=== PATIENT | female | born 1980 | race Caucasian/White ===

== ENCOUNTER 2021-09-06 12:59 | Emergency (ER) | payer OTHER, SELFPAY ==
[2021-09-06 13:12] VITALS: BP 117/69; PULSE 66; RESP 16; TEMP 36.5; O2SAT 100
--- NOTE | 2021-09-06 13:32 | ED.URI ---
HPI - URI/Sore Throat General Chief Complaint: Upper Respiratory Infection Stated Complaint: Runny Nose,Sore Throat Time Seen by Provider: 09/06/21 13:32 Source: patient, RN notes reviewed and old records reviewed Mode of arrival: ambulatory Limitations: no limitations History of Present Illness HPI Narrative: 41-year-old female who presents to [facility] with complaints of runny nose sore throat, headache and fatigue since yesterday with some body aches. Patient reports that daughter tested positive for COVID on Sunday. Patient reports that she has had COVID vaccinations but no Booster, no flu shot. Patient reports no shortness of breath or any wheezing noted, states some dry cough, did feel feverish last night. MD elicited complaint: cough, sore throat, rhinorrhea and other (body aches and fatigue.) Onset (ago): day(s) (1) Related Data Home Medications Medication Instructions Recorded Confirmed No Home Medications 09/06/21 09/06/21 Allergies Allergy/AdvReac Type Severity Reaction Status Date / Time No Known Allergies Allergy Verified 09/06/21 14:10 Review of Systems Review of Systems: CONSTITUTIONAL: Denies known fever, chills, or sweats. EYES: Denies visual changes, redness, or discharge. ENT: Positive for rhinorrhea, congestion, sore throat, no otalgia. CARDIOVASCULAR: Denies chest pain, palpitations, or edema. RESPIRATORY: dry cough no dyspnea. GASTROINTESTINAL: Denies abdominal pain, nausea, vomiting, or diarrhea. GENITOURINARY: Denies dysuria or hematuria. SKIN: Denies rash or itching. MUSCULOSKELETAL: Denies back pain, joint pain, body aches stated NEUROLOGIC: Denies headache, numbness, or weakness. PSYCHIATRIC: Denies anxiety or depression. All systems reviewed & are unremarkable except as noted in HPI and below PMFSH Past Medical History Medical History (Updated 09/07/21 @ 00:43 by Moni Zuleta NP) Gall bladder disease Hypothyroid Surgical History Surgical History (Updated 09/07/21 @ 00:44 by Moni Zuleta NP) History of removal of ovarian cyst History of tonsillectomy Social History Social History (Updated 09/07/21 @ 00:45 by Moni Zuleta NP) Smoking status: Never smoker Alcohol intake: current Alcohol use details: social rare Substance use type: does not use Living arrangements: with family Gender identity (if verbalized by the patient): Female Comments At time of signature, agree with nursing past medical, surgical, social and family history. There is no relevant family history pertinent to the presenting complaint Exam Narrative: GENERAL: Well-appearing, well-nourished, and in no acute distress. HEAD: Normocephalic, atraumatic. EYES: PERRLA and EOMI. ENT: Nares clear, no rhinorrhea or epistaxis. Mucous membranes moist.TM's normal with good light reflex, throat pink with no lesion or exudates, tonsils absent. NECK: Supple with no lymphadenopathy CHEST: Clear to auscultation. No respiratory distress.dry cough, denies any dyspnea no tachypnea, SAO2 100% on room air HEART: Regular rate and rhythm. No murmur heard. Normal peripheral pulses. ABDOMEN: Soft, nontender, nondistended, normal active bowel sounds. EXTREMITIES: Normal range of motion. No edema. SKIN: Warm, dry, no rash. NEURO: No focal deficits. Alert and oriented x3. Course Course Level of Care: Express Care Visit Vital Signs Vital signs: Vital Signs Temperature 36.5 C 09/06/21 13:12 Pulse Rate 66 09/06/21 13:12 Respiratory Rate 16 09/06/21 13:12 Blood Pressure 117/69 09/06/21 13:12 Pulse Oximetry 100 09/06/21 13:12 Oxygen Delivery Room Air 09/06/21 13:12 Temperature 36.5 C 09/06/21 13:12 Pulse Rate 66 09/06/21 13:12 Respiratory Rate 16 09/06/21 13:12 Blood Pressure 117/69 09/06/21 13:12 Pulse Oximetry 100 09/06/21 13:12 Oxygen Delivery Room Air 09/06/21 13:12 MDM - URI/Sore Throat Differential Diagnosis Differential diagnosis: Likely up
[2021-09-06 20:48] LABS: SARS-CoV-2 RNA PCR Negative
== END 2021-09-06 14:00 | disposition home or self-care (01) ==
PROVIDERS: Emergency Provider Registered Nurse
DX: J06.9 Acute upper respiratory infection, unspecified (principal); Z20.822 Contact with and (suspected) exposure to COVID-19; E03.9 Hypothyroidism, unspecified
CPT/HCPCS: 87081; 87426; 87880; 99203; C9803; G0463; U0003; U0005

== ENCOUNTER 2021-10-08 12:41 | Emergency (ER) | payer OTHER, SELFPAY ==
[2021-10-08 12:54] VITALS: BP 131/91; PULSE 72; RESP 16; TEMP 36.9; O2SAT 100
[2021-10-08 13:01] VITALS: BP 131/91; PULSE 72; RESP 16; TEMP 36.9; O2SAT 100
--- NOTE | 2021-10-08 13:30 | ED.URI ---
HPI - URI/Sore Throat General Chief Complaint: Upper Respiratory Infection Stated Complaint: Sinus,Fever,Sore Throat,SOB Time Seen by Provider: 10/08/21 13:30 History of Present Illness HPI Narrative: Tami Hernandez is a 41-year-old female with hypothyroid who comes to express care stating that she feels really sick and is been fatigued, laying in bed, has a fever, can taste or smell, aches all over x2 days and is gradually gotten worse Related Data Home Medications Medication Instructions Recorded Confirmed levothyroxine 125 mcg tablet 125 mcg PO DAILY 10/08/21 10/08/21 sertraline 50 mg tablet 50 mg PO DAILY 10/08/21 10/08/21 valacyclovir 500 mg tablet 500 mg PO DIRECTED 10/08/21 10/08/21 Allergies Allergy/AdvReac Type Severity Reaction Status Date / Time No Known Allergies Allergy Verified 10/08/21 12:53 Review of Systems Review of Systems: CONSTITUTIONAL: Has s fever, chills, sweats. Muscle pain EYES: Denies visual changes, redness, discharge. ENT: Denies rhinorrhea, congestion, has sore throat, has otalgia. CARDIOVASCULAR: Denies chest pain, palpitations, edema. RESPIRATORY: Denies dyspnea, wheezing, dry cough GASTROINTESTINAL: Denies abdominal pain, nausea, vomiting, diarrhea. GENITOURINARY: Denies dysuria, hematuria, abnormal discharge SKIN: Denies rash or itching. NEUROLOGIC: Denies numbness, or focal weakness. PSYCHIATRIC: Denies anxiety or depression. PMFSH Past Medical History Medical History Gall bladder disease Hypothyroid Surgical History Surgical History History of removal of ovarian cyst History of tonsillectomy Social History Social History Smoking status: Never smoker Alcohol intake: current Alcohol use details: social rare Substance use type: does not use Gender identity (if verbalized by the patient): Female Comments At time of signature, I agree with nursing past medical, surgical, social and family history. There is no relevant family history pertinent to the presenting complaint. Exam Narrative: GENERAL: This is a well-nourished, well-developed patient, in moderate distress. Tearful HEAD: normocephalic, atraumatic. EYES: . Sclera clear/white. Vision is grossly intact. EARS: External ears normal, auditory canals erythematous with edema and without drainage, . Hearing grossly intact. NOSE: External nose normal without nasal discharge, nares without redness, has rhinorrhea. States cannot smell or taste THROAT: Mucous membranes moist, posterior pharynx erythema NECK: Neck supple, non-tender CARDIOVASCULAR: Regular rate and rhythm without murmurs, gallops, or rubs. RESPIRATORY: Clear to auscultation. Breath sounds equal bilaterally. No wheezes, rales, or rhonchi. GASTROINTESTINAL: Abdomen soft, non-tender, SKIN: warm, intact with no suspicious lesions or rash, good texture and turgor. NEURO: awake, alert, and oriented to person, place and time. There were no obvious focal neurologic abnormalities. Steady gait EXTREMITIES: Normal range of motion. BACK: Nontender without deformity Course Course Emergency Course: Patient here with worsening symptoms since Sunday of cough fever general muscle pain inability to eat or smell, states generally feels lousy Flu done - positive for flu A COVID done negative strep done-negative started on steroids, tessalon, use Tylenol ibuprofen as needed Level of Care: Express Care Visit Vital Signs Vital signs: Vital Signs Temperature 98.5 F 10/08/21 12:54 Pulse Rate 72 10/08/21 12:54 Respiratory Rate 16 10/08/21 12:54 Blood Pressure 131/91 H 10/08/21 12:54 Pulse Oximetry 100 10/08/21 12:54 Oxygen Delivery Room Air 10/08/21 12:54 Temperature 98.5 F 10/08/21 13:01 Pulse Rate 72 10/08/21 13:01 Respiratory Rate 16 10/08/21 13:01 Bl
== END 2021-10-08 14:24 | disposition home or self-care (01) ==
PROVIDERS: Emergency Provider Nurse Practitioner
DX: J10.1 Influenza due to other identified influenza virus with other respiratory manifestations (principal); Z20.822 Contact with and (suspected) exposure to COVID-19; E03.9 Hypothyroidism, unspecified
CPT/HCPCS: 87081; 87426; 87804; 87880; 99213; C9803; G0463

== ENCOUNTER 2021-11-24 11:45 | Outpatient (CLI) | payer OTHER, SELFPAY ==
[2021-11-24 12:19] LABS: Alanine Aminotransferase 27 U/L (6-35); Albumin Level 4.5 g/dL (3.5-5.1); Alkaline Phosphatase 56 U/L (38-126); Anion Gap 11 mmol/L (8-16); Aspartate Amino Transferase 35 U/L (14-36); Basophils Absolute Auto 0.1 K/mm3 (0.0-0.1); Basophils Percent Auto 0.8 % (0.2-1.2); Bilirubin,Total 0.4 mg/dL (0.2-1.3); Blood Urea Nitrogen 15 mg/dL (7-17); Carbon Dioxide 25 mmol/L (22-30); Chloride 101 mmol/L (98-107); Cholesterol 151 mg/dL (0-200); Eosinophils Absolute Auto 0.4 K/mm3 (0-0.3); Eosinophils Percent Auto 3.6 % (0-4.4); Estimated Glomerular Filt Rate > 60; Glucose 96 mg/dL (65-110); HDL Direct 74 mg/dL; Hematocrit 39.3 % (37.0-47.0); Hemoglobin 13.2 g/dL (12.0-15.0); Immature Granulocyte Absolute 0.04 K/mm3 (0.00-0.031); Immature Granulocyte Percent A 0.3 % (0-0.5); Lymphocytes Absolute Auto 2.99 K/mm3 (0.9-3.2); Lymphocytes Percent Auto 25.5 % (18.3-44.2); Mean Corpuscular HGB Conc 33.6 g/dl (32-36); Mean Corpuscular Hemoglobin 31.7 pg (26-34); Mean Corpuscular Volume 94.5 fl (80-100); Mean Platelet Volume 9.5 fl (7.4-10.4); Monocytes Absolute Auto 0.7 K/mm3 (0.1-0.6); Monocytes Percent Auto 6.2 % (2.6-8.5); Neutrophils Absolute Auto 7.5 K/mm3 (1.3-6.7); Neutrophils Percent Auto 63.6 % (45.5-73.1); Platelet Count Result 363 k/mm3 (150-375); Red Blood Count 4.16 M/mm3 (4.2-5.4); Red Cell Distribution Width 14.8 % (11.5-14.5); Sodium 137 mmol/L (137-145); Triglycerides 49 mg/dL (<150); White Blood Count 11.7 K/mm3 (4.5-10.0)
[2021-11-24 12:30] LABS: LDL Cholesterol Direct 59 mg/dL
[2021-11-24 13:05] LABS: Thyroid Stimulating Hormone Reflex 0.981 uIU/mL (0.465-4.68)
[2021-11-24 13:40] LABS: Hemoglobin A1C 5.4 % (<5.7)
== END 2021-11-24 11:46 | disposition home or self-care (01) ==
PROVIDERS: Visit Provider Nurse Practitioner Obstetrics & Gynecology
DX: Z00.00 Encounter for general adult medical examination without abnormal findings (principal)
CPT/HCPCS: 36415; 80053; 80061; 82306; 83036; 84443; 85025

== ENCOUNTER 2021-12-21 13:21 | Outpatient (CLI) | payer OTHER, SELFPAY ==
--- NOTE | ~2021-12-21 | US_ITS ---
EXAMINATION: US thyroid DATE: 12/21/2021 13:50 INDICATION: Nontoxic goiter. TECHNIQUE: Multiple ultrasound images of the thyroid were obtained. COMPARISON: None. FINDINGS: The right thyroid lobe measures 3.3 x 1.0 x 1.2 cm. The left thyroid lobe measures 2.6 x 0.9 x 1.2 c m. The thyroid is diffusely heterogeneous and hypoechoic. No discrete nodule. Vascularity is increas ed. IMPRESSION: 1. Heterogeneous, hypervascular thyroid, consistent with chronic lymphocytic (Brittaney) thyroiditis. Reviewed, dictated and finalized at location A. ERY HOST IMPRESSION: 1. Heterogeneous, hypervascular thyroid, consistent with chronic lymphocytic (H ashimoto) thyroiditis.
== END 2021-12-21 13:22 | disposition home or self-care (01) ==
DX: E04.9 Nontoxic goiter, unspecified (principal)
CPT/HCPCS: 76536

== ENCOUNTER 2021-12-22 11:51 | Emergency (ER) | payer OTHER, SELFPAY ==
--- NOTE | 2021-12-22 12:14 | ED.URI ---
HPI - URI/Sore Throat General Chief Complaint: Upper Respiratory Infection Stated Complaint: Sore Throat, Running Nose, Weakness Time Seen by Provider: 12/22/21 12:15 Source: patient Mode of arrival: ambulatory Limitations: no limitations History of Present Illness HPI Narrative: Ms. Duval is a 41-year-old female patient presenting to clinic today with complaints of sore throat, runny nose, and feeling weak. She reports her symptoms started yesterday. States that her daughter tested positive for influenza on Sunday. MD elicited complaint: sore throat and nasal congestion Related Data Home Medications Medication Instructions Recorded Confirmed levothyroxine 125 mcg tablet 125 mcg PO DAILY 10/08/21 12/22/21 sertraline 50 mg tablet 50 mg PO DAILY 10/08/21 12/22/21 valacyclovir 500 mg tablet 500 mg PO DIRECTED 10/08/21 12/22/21 Allergies Allergy/AdvReac Type Severity Reaction Status Date / Time No Known Allergies Allergy Verified 12/22/21 11:57 Review of Systems Review of Systems: Pertinent positives per HPI. Patient denies any fever, chills, rash, headache, visual changes, dizziness, shortness of breath, chest pain, palpitations, nausea, vomiting, diarrhea, constipation, abdominal pain, or any urinary issues. [facility] Past Medical History Medical History Gall bladder disease Hypothyroid Surgical History Surgical History History of removal of ovarian cyst History of tonsillectomy Social History Social History Smoking status: Never smoker Alcohol intake: current Alcohol use details: social rare Substance use type: does not use Gender identity (if verbalized by the patient): Female Comments At the time of my signature, I reviewed and agree with the nursing past medical, surgical, social, and family history. There is no relevant family history pertinent to the patient complaint. Exam Narrative: General: Well-developed, well nourished, in no apparent distress Head: Normocephalic, atraumatic Eyes: Pupils equally round and reactive to light bilaterally, EOM intact, sclera and conjunctive clear, no discharge, lids normal Ears: TMs intact and clear, ear canals clear, no drainage, grossly hearing normal. Nose: Nares patent, clear nasal discharge, no inflammation, no sinus tenderness. Mouth: Oral pharynx without lesions or masses, good dentition, MMM. Oropharynx red, postnasal drip Neck: Supple, trachea midline, no enlargement of anterior or posterior cervical nodes, no thyroid masses or goiter palpable. Cardio: Regular rate and rhythm, s1 and s2 normal, no murmur appreciated. Resp: Clear to auscultation bilaterally, no rhonchi, rales, wheezing or rubs Course Course Emergency Course: Portions of this record may have been created with voice recognition software. Level of Care: Express Care Visit Vital Signs Vital signs: Vital Signs Temperature 36.3 C L 12/22/21 12:15 Pulse Rate 77 12/22/21 12:15 Respiratory Rate 20 12/22/21 12:15 Blood Pressure 124/72 12/22/21 12:15 Pulse Oximetry 100 12/22/21 12:15 Oxygen Delivery Room Air 12/22/21 12:15 Temperature 36.3 C L 12/22/21 12:15 Pulse Rate 77 12/22/21 12:15 Respiratory Rate 20 12/22/21 12:15 Blood Pressure 124/72 12/22/21 12:15 Pulse Oximetry 100 12/22/21 12:15 Oxygen Delivery Room Air 12/22/21 12:15 Vital signs reviewed MDM - URI/Sore Throat MDM Narrative Medical decision making narrative: At the time of visit patient is resting comfortably on the exam table. I will treat her for influenza exposure with viral syndrome as she has had direct exposure from her daughter. Measures were discussed with the patient she voiced understanding of discharge instructions. Tamiflu prescription was sent to the pharmacy
[2021-12-22 12:15] VITALS: BP 124/72; PULSE 77; RESP 20; TEMP 36.3; O2SAT 100
== END 2021-12-22 17:22 | disposition home or self-care (01) ==
PROVIDERS: Emergency Provider Nurse Practitioner Family
DX: B34.9 Viral infection, unspecified (principal); Z20.828 Contact with and (suspected) exposure to other viral communicable diseases; E03.9 Hypothyroidism, unspecified
CPT/HCPCS: 99213; G0463

== ENCOUNTER 2021-12-31 11:29 | Outpatient (CLI) | payer OTHER, SELFPAY ==
--- NOTE | ~2021-12-31 | MM_ITS ---
EXAMINATION: MM screening megan BI w kusum HISTORY: Screening mammogram TECHNIQUE: Craniocaudal and mediolateral oblique 3-D tomosynthesis images were obtained and synthetic 2-D images were generated. CAD analysis was submitted and interpreted. COMPARISON: No prior mammogram is available for comparison at this institution. BREAST PARENCHYMAL COMPOSITION: The breasts are heterogeneously dense, which may obscure small masses . FINDINGS: RIGHT BREAST: No suspicious mass, calcification, or architectural distortion are identified to sugges t malignancy. LEFT BREAST: There is asymmetry in the posterior third of the slightly inner breast on the craniocaud al view. IMPRESSION: 1. Left breast asymmetry which may represent the patient's baseline however no comparison is currentl y available. 2. Comparison with prior mammograms is necessary. BI-RADS Category 0: Incomplete: Needs comparison with prior mammograms. Reviewed, dictated and finalized at location A. CLERK IMPRESSION: 1. Left breast asymmetry which may represent the patient's baseline however no comparison is currently available. 2. Comparison with prior mammograms is necessary. BI-RADS Category 0: Incomplete: Needs comparison with prior mammograms.
== END 2021-12-31 11:30 | disposition home or self-care (01) ==
PROVIDERS: Visit Provider Nurse Practitioner Obstetrics & Gynecology
DX: Z12.31 Encounter for screening mammogram for malignant neoplasm of breast (principal); R92.8 Other abnormal and inconclusive findings on diagnostic imaging of breast
CPT/HCPCS: 77063; 77067

== ENCOUNTER 2022-01-27 10:57 | Outpatient (CLI) | payer OTHER, SELFPAY ==
--- NOTE | ~2022-01-27 | MMUS_ITS ---
EXAMINATION: MM diagnostic megan LT w kusum, US breast LT complete HISTORY: Follow-up left breast asymmetry TECHNIQUE: Additional 3-D tomosynthesis images of the left breast were performed and synthetic 2-D im ages were generated. CAD analysis was submitted and interpreted. High resolution complete left breast ultrasound was performed. COMPARISON: Comparison to multiple prior studies sequentially, with oldest reviewed study dated 03/25. BREAST PARENCHYMAL COMPOSITION: The breasts are heterogeneously dense, which may obscure small masses FINDINGS: MAMMOGRAPHIC FINDINGS: There are no suspicious masses, calcifications or architectural distortion in the left breast. Left b reast asymmetry is less dense with spot compression views, compatible with superimposed fibroglandula r tissue. ULTRASOUND: Complete left breast ultrasound including all 4 quadrants in the subareolar location: Normal heteroge neous echotexture without focal solid or cystic mass. Normal-appearing left axillary lymph nodes. IMPRESSION: 1. No evidence for malignancy in the left breast. 2. Routine yearly screening mammogram and regular clinical breast examination are recommended. BI-RADS Category 2: Benign finding(s). Reviewed, dictated and finalized at location A. HAUL TRUCK DRIVER IMPRESSION: 1. No evidence for malignancy in the left breast. 2. Routine yearly screening mammogram and regular clinical breast examination a re recommended. BI-RADS Category 2: Benign finding(s).
== END 2022-01-27 10:58 | disposition home or self-care (01) ==
PROVIDERS: Visit Provider Nurse Practitioner Obstetrics & Gynecology
DX: R92.8 Other abnormal and inconclusive findings on diagnostic imaging of breast (principal)
CPT/HCPCS: 76641; 77061; 77065; G0279

== ENCOUNTER 2022-01-30 16:48 | Emergency (ER) | payer OTHER, SELFPAY ==
[2022-01-30 17:43] VITALS: BP 118/82; PULSE 87; RESP 18; TEMP 38.8; O2SAT 100
--- NOTE | 2022-01-30 18:15 | ED.URI ---
HPI - URI/Sore Throat General Chief Complaint: Upper Respiratory Infection Stated Complaint: Fever/Bodyaches Time Seen by Provider: 01/30/22 18:15 Source: patient, RN notes reviewed and old records reviewed Mode of arrival: ambulatory Limitations: no limitations History of Present Illness HPI Narrative: 41-year-old female presents to the [facility] with complaints of fever, body aches. patient looks acutely ill. febrile has taken Tylenol Related Data Home Medications Medication Instructions Recorded Confirmed levothyroxine 125 mcg tablet 125 mcg PO DAILY 10/08/21 12/22/21 sertraline 50 mg tablet 50 mg PO DAILY 10/08/21 12/22/21 valacyclovir 500 mg tablet 500 mg PO DIRECTED 10/08/21 12/22/21 omeprazole 20 mg capsule,delayed mg 01/30/22 release Allergies Allergy/AdvReac Type Severity Reaction Status Date / Time No Known Allergies Allergy Verified 01/30/22 18:14 Review of Systems Review of Systems: All systems reviewed & are unremarkable except as noted in HPI and below Constitutional: Constitutional: Reports as per HPI, Reports fatigue and Reports fever(s) Eyes: Eyes: Reports no additional eye complaints ENT: Reports system reviewed and no additional complaints, except as documented Cardiovascular: Cardiovascular: Reports no additional cardiovascular complaints, Denies chest pain and Denies dyspnea Respiratory: Respiratory: Reports no additional respiratory complaints, Denies chest congestion, Denies cough and Denies dyspnea Gastrointestinal: Gastrointestinal: Reports no additional gastrointestinal complaints, Denies abdominal pain, Denies nausea and Denies vomiting Musculoskeletal: Musculoskeletal: Reports no additional musculoskeletal complaints Integumentary/Breasts: Skin/Breast: Reports system reviewed and no additional complaints, except as docu Neurologic: Reports system reviewed and no additional complaints, except as documented Psychiatric: Psychiatric: Reports no additional psychiatric complaints Allergic/Immunologic: Allergic/Immunologic: Reports no additional allergic/immunologic complaints PMFSH Past Medical History Medical History Gall bladder disease Hypothyroid Surgical History Surgical History History of removal of ovarian cyst History of tonsillectomy Social History Social History Smoking status: Never smoker Alcohol intake: current Alcohol use details: social rare Substance use type: does not use Gender identity (if verbalized by the patient): Female Comments At the time of my signature, I reviewed and agree with the nursing past medical, surgical, social, and family history. There is no relevant family history pertinent to the patient complaint. Exam Const: General: cooperative, no acute distress, well developed, alert, ill appearing acutely (mild), uncomfortable and well nourished Nutritional Appearance: well nourished Orientation/consciousness: patient oriented x3 Limitations: no limitations HENMT: Head: normal to inspection Ears: hearing grossly normal bilaterally and external ears normal Face/Nose/Sinus: Normal external nose present, Normal nares present, Normal nasal mucous membranes and turbinates present and normal facial exam Face and sinus: normal facial exam Mouth: Yes Normal oral and palatal mucosa present, Yes lip normal and Yes moist mucous membranes Throat: posterior oropharynx normal and uvula midline Eyes: General: appearance normal, both eyes and all related structures Alignment and Position: alignment normal Periorbital: periorbital findings normal Conjunctivae: conjunctivae normal Pupils: Equal, round and reactive pupils present EOM: EOMs intact bilaterally Neck: Neck: normal visual inspection, full ROM, no lymphadenopathy and no meningeal signs Chest: Chest palp
== END 2022-01-30 18:36 | disposition home or self-care (01) ==
PROVIDERS: Emergency Provider Nurse Practitioner
DX: U07.1 COVID-19 (principal); E03.9 Hypothyroidism, unspecified
CPT/HCPCS: 87426; 87804; 99213; C9803; G0463

== ENCOUNTER 2022-02-09 09:33 | Outpatient (CLI) | payer OTHER, SELFPAY ==
[2022-02-09 10:48] LABS: Thyroid Stimulating Hormone 0.822 uIU/mL (0.465-4.680)
== END 2022-02-09 09:34 | disposition home or self-care (01) ==
DX: E03.9 Hypothyroidism, unspecified (principal)
CPT/HCPCS: 36415; 84443

== ENCOUNTER 2022-02-20 12:04 | Observation (INO) | payer OTHER, SELFPAY ==
[2022-02-20] VITALS (32 sets, daily range): BP systolic 105–135; BP diastolic 54–87; PULSE 55–78; RESP 9–21; TEMP 36.4; O2SAT 98–100; BMI 28.5
--- NOTE | ~2022-02-20 | CT_ITS ---
EXAMINATION: CTA brain carotid DATE: 02/20/2022 18:10 INDICATION: dizziness TECHNIQUE: Computed tomographic angiography (CTA) of the head and neck was performed with 100 mL Omni paque-350 intravenous contrast. Automated exposure control and iterative reconstruction technique wer e employed. The dose-length product was 1006.93 mGy-cm. Maximum intensity projection and volume rende red 3D-reconstructions were created by the technologist on a separate workstation. COMPARISON: CT brain, same date. FINDINGS: CT BRAIN: No acute large vessel infarct, intracranial hemorrhage, mass, or hydrocephalus. CTA HEAD: No large vessel occlusion, aneurysm, high flow vascular malformation, nidus or extravasation. CTA NECK: Aortic arch and proximal great vessels: Normal anatomy. No significant calcification. Right common carotid, carotid bifurcation, and internal carotid artery: No significant atherosclerosi s.There is 0% stenosis of the proximal right internal carotid artery relative to normal distal artery lumen diameter (NASCET criteria). Left common carotid, carotid bifurcation, and internal carotid artery: No significant atherosclerosis .There is 0% stenosis of the proximal left internal carotid artery relative to normal distal artery l umen diameter (NASCET criteria). Vertebral arteries: No significant plaque or stenosis. Left vertebral artery is dominant. Other findings: None. IMPRESSION: No large vessel occlusion or significant carotid/vertebral stenosis. Reviewed, dictated and finalized at location K. UE CARVER
--- NOTE | ~2022-02-20 | MR_ITS ---
MRI of the brain Clinical History: Vertigo Technique: Axial and sagittal T1-weighted images were acquired. These were followed by axial T2-weigh jordan, diffusion weighted, gradient, and FLAIR images. Findings: No abnormal signal seen in the brain parenchyma. No acute infarct, intracranial hemorrhage, or mass lesion. Ventricles and subarachnoid spaces are unremarkable. Orbits are unremarkable. Paranasal sinuses and m astoid air cells are clear. Major intracranial flow voids are intact. Sagittal midline structures are intact. IMPRESSION: Unremarkable exam. Reviewed, dictated and finalized at location M. RNAL AUDITOR IMPRESSION: Unremarkable exam.
--- NOTE | ~2022-02-20 | CT_ITS ---
EXAMINATION: CT brain wo con DATE: 02/20/2022 15:08 INDICATION: dizziness . TECHNIQUE: Computed tomography (CT) of the head was performed about intravenous contrast. The mA was adjusted according to patient size. Iterative reconstruction technique was employed. The dose-length product was 605.33 mGy-cm. COMPARISON: None. FINDINGS: No acute intracranial hemorrhage or extra-axial fluid collection. No hydrocephalus, mass, or herniation. No acute ischemic infarct. Unremarkable dural venous sinus attenuation. No acute osseous abnormality. The aerated spaces are clear. IMPRESSION: No acute intracranial process. Reviewed, dictated and finalized at location K. CART PEDDLER
--- NOTE | 2022-02-20 12:23 | ECG_ITS ---
Measurements Intervals [place] Rate: 61 P: 24 [place]: 114 QRS: 56 QRSD: 69 T: 35 QT: 401 QTc: 405 Interpretive Statements SINUS RHYTHM WITH SHORT [place] INTERVAL LOW VOLTAGE- PRECORDIAL LEADS BORDERLINE T WAVE ABNORMALITY- ANTERIOR LEADS BASELINE ARTIFACT- I, II, III, AVR, AVL BORDERLINE ECG NO PREVIOUS ECG AVAILABLE FOR COMPARISON Electronically Signed On 02-20-2022 12:47:15 ANTIQUE REFINISHER by Juan Parish D.O.
[2022-02-20 12:47] LABS: Basophils Absolute Auto 0.1 K/mm3 (0.0-0.1); Basophils Percent Auto 0.7 % (0.2-1.2); Eosinophils Absolute Auto 0.4 K/mm3 (0-0.3); Eosinophils Percent Auto 4.4 % (0-4.4); Hemoglobin 12.9 g/dL (12.0-15.0); Immature Granulocyte Absolute 0.02 K/mm3 (0.00-0.031); Immature Granulocyte Percent A 0.2 % (0-0.5); Lymphocytes Absolute Auto 2.58 K/mm3 (0.9-3.2); Lymphocytes Percent Auto 29.1 % (18.3-44.2); Mean Corpuscular HGB Conc 33.1 g/dl (32-36); Mean Corpuscular Hemoglobin 31.4 pg (26-34); Mean Corpuscular Volume 94.9 fl (80-100); Mean Platelet Volume 9.7 fl (7.4-10.4); Monocytes Absolute Auto 0.7 K/mm3 (0.1-0.6); Monocytes Percent Auto 7.4 % (2.6-8.5); Neutrophils Absolute Auto 5.2 K/mm3 (1.3-6.7); Neutrophils Percent Auto 58.2 % (45.5-73.1); Platelet Count Result 358 k/mm3 (150-375); Red Blood Count 4.11 M/mm3 (4.2-5.4); Red Cell Distribution Width 15.3 % (11.5-14.5); White Blood Count 8.9 K/mm3 (4.5-10.0)
[2022-02-20 12:56] LABS: Alanine Aminotransferase 17 U/L (6-35); Albumin Level 4.3 g/dL (3.5-5.1); Alkaline Phosphatase 45 U/L (38-126); Anion Gap 6 mmol/L (8-16); Aspartate Amino Transferase 24 U/L (14-36); Bilirubin,Total 0.4 mg/dL (0.2-1.3); Blood Urea Nitrogen 10 mg/dL (7-17); Calcium 8.5 mg/dL (8.4-10.2); Carbon Dioxide 26 mmol/L (22-30); Chloride 104 mmol/L (98-107); Estimated CRCL calculation 80 ml/min; Estimated Glomerular Filt Rate > 60; Glucose 106 mg/dL (65-110); Potassium 3.8 mmol/L (3.4-5.0); Sodium 136 mmol/L (137-145)
--- NOTE | 2022-02-20 14:59 | ED.DIZZY ---
HPI - Dizziness General Chief Complaint: Dizziness Stated Complaint: dizziness x 2 days Time Seen by Provider: 02/20/22 14:46 History of Present Illness HPI Narrative: Pt presents with dizziness and nausea with movement of head. Pt says symptoms not there if her head is still. Pt has mild frontal MELENDEZ. Pt denies slurred speech or one sided weakness. Pt has no history of similar episodes. Pt denies hearing loss or changes. Related Data Home Medications Medication Instructions Recorded Confirmed levothyroxine 125 mcg tablet 125 mcg PO DAILY 10/08/21 12/22/21 sertraline 50 mg tablet 50 mg PO DAILY 10/08/21 12/22/21 valacyclovir 500 mg tablet 500 mg PO DIRECTED 10/08/21 12/22/21 omeprazole 20 mg capsule,delayed mg 01/30/22 release Allergies Allergy/AdvReac Type Severity Reaction Status Date / Time No Known Allergies Allergy Verified 02/20/22 12:05 Review of Systems Review of Systems: All systems reviewed & are unremarkable except as noted in HPI and below PMFSH Past Medical History Medical History Gall bladder disease Hypothyroid Surgical History Surgical History History of removal of ovarian cyst History of tonsillectomy Social History Social History Smoking status: Never smoker Alcohol intake: current Alcohol use details: social rare Substance use type: does not use Gender identity (if verbalized by the patient): Female Exam Const: General: healthy appearing and no acute distress Nutritional Appearance: well nourished Orientation/consciousness: patient oriented x3 Limitations: no limitations HENMT: Head: normal to inspection Ears: TM's normal bilaterally Mouth: Yes Normal oral and palatal mucosa present Eyes: Conjunctivae: conjunctivae normal Pupils: Equal, round and reactive pupils present EOM: EOMs intact bilaterally Resp: Effort & Inspection: normal respiratory effort Auscultation: clear to auscultation bilaterally Cardio: Rate: regular rate Rhythm: regular rhythm GI: Auscultation: normal bowel sounds Skin: General skin exam: normal color Wounds: no wounds Neuro: General: patient oriented x3, moves all extremities, no meningeal signs, no focal motor deficits and CN's II-XI intact bilaterally Speech: normal speech Extrem: General: normal to inspection and no clubbing, cyanosis or edema Psych: Mental Status: mental status grossly normal Affect: normal affect Attitude: cooperative Course Course Emergency Course: Epply maneuver attmpted. Symptoms did not improve. Tried to sit patient up to walk and she became even more dizzy not able to stand. can't really discharge patient in this condition. discussed with matthew godoy agrees to admit for obs. Will get CTA head and neck to be safe and rule out posterior circulation cva or dissection Vital Signs Vital signs: Vital Signs Temperature 97.6 F 02/20/22 12:06 Pulse Rate 70 02/20/22 12:06 Respiratory Rate 14 02/20/22 12:06 Blood Pressure 116/59 L 02/20/22 12:06 Pulse Oximetry 100 02/20/22 12:06 Oxygen Delivery Room Air 02/20/22 12:06 Temperature 97.6 F 02/20/22 12:06 Pulse Rate 67 02/20/22 17:47 Respiratory Rate 15 02/20/22 17:31 Blood Pressure 111/87 02/20/22 17:47 Pulse Oximetry 100 02/20/22 17:01 Oxygen Delivery Room Air 02/20/22 12:06 MDM - Dizziness MDM Narrative Medical decision making narrative: seems like positional vertigo, less likely posterior circulation cva. will CT brain non contrast and treat with meclizine first and then attempt epply maneuver to see if we can improve. Performed Epply maneuver without much relief, antivert and zofran minimally effective. Pt not able to sit up or ambulate withour becoming extrmely dizzy. discussed with Matthew horn to admit for obs, will get CTA had
[2022-02-20] MEDS: ONDANSETRON HCL ODT 4 MG TABLET PO (15:22)
[2022-02-20] MEDS: MECLIZINE HCL 25 MG TABLET 50 MG PO (15:25)
[2022-02-20] MEDS: fentaNYL CITRATE INJ (*CRX) 100 MCG/2 ML VIAL 25 MCG IM (15:26)
[2022-02-20 19:06] LABS: Influenza A QL RT-PCR Negative (Negative); Influenza B QL RT-PCR Negative (Negative); SARS-CoV-2 RNA PCR Negative
[2022-02-20] MEDS: diazePAM INJ (*CRX) 10 MG/2 ML SYRINGE 5 MG IV PUSH (19:09)
--- NOTE | 2022-02-20 20:00 | PM.IMHP ---
H&P: HPI History of Present Illness Date/Time: 02/20/22 20:00 Chief Complaint: Dizziness. Narrative: This is a very pleasant 41-year-old female with recent diagnosis of Brittaney's, depression, and anxiety who presented to the emergency department from home for evaluation of dizziness. She has had a a frontal headache and mild sinus congestion for the last several days. 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 The dizziness seemed to be a bit more frequent yesterday with mild right-sided tinnitus. Upon waking this morning she reports severe dizziness which sounds to be vertiginous in nature associated with nausea. It is worse with minimal movement and perhaps a bit better when lying still. She has never had similar symptoms. She denies fever, chills, sweats, otalgia, odynophagia, and vomiting. She also denies acute visual changes, facial droop, dysarthria, dysphagia, focal weakness, and paresthesias. Vital signs were stable on arrival to the ED. CT of the brain and CTA of the brain and carotid were unremarkable. She was given ondansetron and meclizine in the ED without a whole lot of benefit. Deanne maneuver exacerbated her symptoms. She is being admitted in this setting for further treatment and evaluation. Review of Systems Review of Systems: Twelve systems were reviewed and are negative except for as per HPI. [facility] Past Medical History Medical History (Updated 02/20/22 @ 23:17 by Navya Jay PA-C) Depression with anxiety Gastroesophageal reflux disease Brittaney's disease Hypothyroidism Surgical History Surgical History (Updated 02/20/22 @ 23:13 by Navya Jay PA-C) History of benign breast biopsy History of cholecystectomy History of colonoscopy with polypectomy History of esophagogastroduodenoscopy History of removal of ovarian cyst History of tonsillectomy Family History Family History Mother Acute myocardial infarction Asthma Cerebrovascular accident Congestive heart failure Diabetes mellitus Hypertension Thyroid disease Father Asthma Cerebrovascular accident Chronic obstructive pulmonary disease Grandparent Colon cancer Social History Social History (Updated 02/20/22 @ 23:15 by Navya Jay PA-C) Social History: Surrogate medical decision maker: Adeilynn Duval, daughter. Code status: Full code. Smoking status: Former smoker Alcohol intake: current Drinks per week: 2 Alcohol use details: Rare alcohol use. Substance use: never Substance use type: does not use Lack of Transportation: No Lack of Food: Never True Current Housing: I Have Housing Concerned About Future Housing: No Difficulty Paying Gas/Electric Bills: No Difficulty Paying for Meds: No Currently Unemployed: No Education: Bachelor's Degree Difficulty w/ Childcare or Family Care: No Additional living arrangements comments: Lives in [place] with family. 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 Spiritual care concerns: No Meds Home Medications and Allergies Home Medications Medication Instructions Recorded Confirmed Type levothyroxine 125 mcg tablet 150 mcg PO DAILY 10/08/21 02/20/22 History sertraline 50 mg tablet 50 mg PO DAILY 10/08/21 02/20/22 History valacyclovir 500 mg tablet 500 mg PO DAILY 10/08/21 02/20/22 History omeprazole 20 mg capsule,delayed 20 mg PO DAILY 01/30/22 02/20/22 History release Allergies Allergy/AdvReac Type Severity Reaction Status Date / Time No Known Allergies Allergy Verified 02/20/22 12:05 Vital Signs Vital Signs - 24 hr 02/20/22 12:06 02/20/22 14:49 02/20/22 14:50 Temperature 97.6 F Pulse Rate 70 59 L 57 L Respiratory Rate 14 14 10 L Blood Pressure 116/59 L 120/70 Pulse Oximetry 100 100 100 Oxygen Delivery Room Air
--- NOTE | 2022-02-20 20:01 | ADMGEN ---
This patient, Tami Duval, was admitted to 2 Medical Room 240-01. Patient/family oriented to hospital policies and general routines including ID bracelet, bed and alarms, visiting hours, pain management, procedures, bathroom and other care routines, personal items, smoking policy, room service/diet, and visiting hours. Information on how to activate the Rapid Response Team has been discussed. Patient/Family are encouraged to report perceived risks to care and to ask questions if they do not understand what they are told or what they should do.
[2022-02-20] MEDS: ACETAMINOPHEN 325 MG TABLET 650 MG PO (20:48)
[2022-02-21] VITALS (8 sets, daily range): BP systolic 101–111; BP diastolic 56–74; PULSE 61–73; RESP 14–20; TEMP 36.4–36.9; O2SAT 98–100
[2022-02-21 05:25] LABS: Anion Gap 4 mmol/L (8-16); Blood Urea Nitrogen 14 mg/dL (7-17); Calcium 7.9 mg/dL (8.4-10.2); Carbon Dioxide 26 mmol/L (22-30); Chloride 105 mmol/L (98-107); Estimated CRCL calculation 65 ml/min; Estimated Glomerular Filt Rate > 60; Glucose 95 mg/dL (65-110); Magnesium 2.2 mg/dL (1.6-2.3); Sodium 135 mmol/L (137-145)
[2022-02-21] MEDS: LEVOTHYROXINE SODIUM 150 MCG TABLET PO (05:47)
[2022-02-21] MEDS: ACETAMINOPHEN 325 MG TABLET 650 MG PO ×3 (05:49→20:45)
[2022-02-21] MEDS: diazePAM (*CRX) 5 MG TABLET PO ×2 (05:49→23:34)
[2022-02-21] MEDS: valACYclovir HCL 500 MG TABLET PO (09:02)
[2022-02-21] MEDS: PANTOPRAZOLE 40 MG TABLET PO (09:02)
[2022-02-21] MEDS: SERTRALINE HCL 50 MG TABLET PO (09:02)
[2022-02-21 16:39] LABS: Free T4 Free Thyroxine Reflex 0.99 ng/dL (0.78-2.19)
--- NOTE | 2022-02-21 16:58 | PM.IMPN ---
Progress Note: A&P Assessment and Plan (1) Vertigo: Code(s): R42 - Dizziness and giddiness Status: Acute Assessment and Plan: Most likely benign paroxysmal positional vertigo. Head CT with no acute findings and CTA of head/neck with no evidence of occlusion or stenosis. No symptomatic improvement with meclizine or diazepam. Given persistent symptoms, will proceed with MRI of the brain. Appreciate PT eval for vestibular therapy. Fall precautions implemented. Continue supportive care. (2) Hypothyroidism: Code(s): E03.9 - Hypothyroidism, unspecified Status: Acute Assessment and Plan: TSH slightly elevated at 4.69 with T4 0.99. Continue levothyroxine 150 mcg daily. Recently a change treated about 6 weeks ago per PCP. Patient is being referred to endocrinology (3) Depression with anxiety: Code(s): F41.8 - Other specified anxiety disorders Status: Chronic Assessment and Plan: no acute issues. Continue sertraline. Subjective Date/time seen: 02/21/22 16:58 Interval history: Date of service: 02/21/2022 Tami Duval is a 41-year-old female with a history of hypothyroidism, GERD, depression, and anxiety who is seen in follow-up for vertigo. Patient states no improvement in her symptoms. Symptoms become worse with any movement or even turning to reposition in bed. No improvement with meclizine. Patient denies any recent ear pain or hearing loss. She does endorse tinnitus and aural fullness. She complains of sinus congestion and felt that she had a sinus infection onset a couple of weeks ago. She complains of chronic neck and shoulder pain that she describes as a tense feeling. She was supposed to have an MRI many years ago, however this was not completed. She occasionally develops numbness in her bilateral hands that resolve if she shakes her hands out. She endorses fatigue. Denies dizziness, lightheadedness, or weakness. Review of Systems Review of Systems: All systems reviewed & are unremarkable except as noted in HPI and below Exam Narrative: General: Well-nourished, well-appearing 41-year-old female, sitting up in bed, comfortable, NARD Neuro: awake, alert and oriented x4, speech clear, CN II-XII intact, strength 5/5 throughout, sensation intact, no pronator drift, bilateral supervisor patching strength equal HEENMT: normocephalic, atraumatic, EOMI, sclerae anicteric, no nystagmus Respiratory: clear to auscultation bilaterally, nonlabored breathing Cardio: regular rate, regular rhythm with S1-S2 Abdomen: nondistended, normoactive bowel sounds, soft, nontender to palpation Extremities: no edema, erythema, or tenderness to palpation, DP pulses 2+ bilaterally Skin: no rashes or lesions, warm and dry Psych: appropriate mood and affect, judgment and insight intact Objective Data Vital Signs Vital Signs: Vital Signs - 24 hr 02/20/22 17:00 02/20/22 17:01 02/20/22 17:15 Temperature Pulse Rate 58 L 62 62 Respiratory Rate 13 20 12 Blood Pressure 107/70 Pulse Oximetry 100 100 Oxygen Delivery 02/20/22 17:17 02/20/22 17:30 02/20/22 17:31 Temperature Pulse Rate 64 58 L 61 Respiratory Rate 18 18 15 Blood Pressure 111/70 105/62 Pulse Oximetry Oxygen Delivery 02/20/22 17:47 02/20/22 17:47 02/20/22 17:47 Temperature Pulse Rate 63 66 67 Respiratory Rate Blood Pressure 112/73 114/80 111/87 Pulse Oximetry Oxygen Delivery 02/20/22 17:32 02/20/22 17:45 02/20/22 18:04 Temperature Pulse Rate 69 68 65 Respiratory Rate 15 19 21 H Blood Pressure Pulse Oximetry 100 Oxygen Delivery 02/20/22 18:15 02/20/22 18:16 02/20/22 18:30 Temperature Pulse Rate 63 67 64 Respiratory Rate 12 16 14 Blood Pressure 135/76 Pulse Oximetry 100 100 100 Oxygen Delivery 02/20/22 18:45 02/20/22 18:47 02/20/22 19:00 Temperature Pulse Rate 61 57 L 78 Respiratory Rate 13 9 L 19 Blood Pressure 113/
[2022-02-21 17:59] LABS: Total Triiodothyronine (T3) 0.95 NG/ML (0.97-1.69)
[2022-02-21] MEDS: FLUTICASONE PROPIONATE 0.05% NA SPR 16 GM BTL (*BKC) 1 SPRAY NASAL (20:45)
[2022-02-22 03:15] VITALS: BP 102/54; PULSE 60; RESP 20; TEMP 36.6; O2SAT 98
[2022-02-22 05:04] LABS: Hematocrit 36.6 % (37.0-47.0); Mean Corpuscular HGB Conc 32.8 g/dl (32-36); Mean Corpuscular Hemoglobin 31.6 pg (26-34); Mean Corpuscular Volume 96.3 fl (80-100); Mean Platelet Volume 9.8 fl (7.4-10.4); Platelet Count Result 292 k/mm3 (150-375); Red Cell Distribution Width 15.4 % (11.5-14.5); White Blood Count 7.9 K/mm3 (4.5-10.0)
[2022-02-22] MEDS: ACETAMINOPHEN 325 MG TABLET 650 MG PO (05:06)
[2022-02-22] MEDS: LEVOTHYROXINE SODIUM 150 MCG TABLET PO (05:07)
[2022-02-22 05:19] LABS: Anion Gap 2 mmol/L (8-16); Blood Urea Nitrogen 11 mg/dL (7-17); Calcium 7.9 mg/dL (8.4-10.2); Carbon Dioxide 26 mmol/L (22-30); Chloride 106 mmol/L (98-107); Estimated CRCL calculation 72 ml/min; Estimated Glomerular Filt Rate > 60; Glucose 94 mg/dL (65-110); Potassium 4.2 mmol/L (3.4-5.0); Sodium 134 mmol/L (137-145)
--- NOTE | 2022-02-22 06:31 | PC.NURSE ---
complained of headache all shift that never went away. Given tylenol PRN dose x2 this shift. Dizziness- gave valium x1 Refused valium the second time this nurse offered. Left for MRI brain 0630 via w/c.
[2022-02-22] MEDS: FLUTICASONE PROPIONATE 0.05% NA SPR 16 GM BTL (*BKC) 1 SPRAY NASAL (07:43)
[2022-02-22] MEDS: valACYclovir HCL 500 MG TABLET PO (07:43)
[2022-02-22] MEDS: PANTOPRAZOLE 40 MG TABLET PO (07:43)
[2022-02-22] MEDS: LORATADINE 10 MG TABLET PO (07:43)
[2022-02-22] MEDS: SERTRALINE HCL 50 MG TABLET PO (07:43)
[2022-02-22] MEDS: diazePAM (*CRX) 5 MG TABLET PO (07:43)
[2022-02-22] MEDS: MECLIZINE HCL 12.5 MG TABLET PO ×2 (08:38→12:48)
[2022-02-22 11:04] VITALS: BP 97/60; PULSE 67
[2022-02-22 11:08] VITALS: BP 89/57; PULSE 75
[2022-02-22 11:40] VITALS: BP 93/58; PULSE 60
[2022-02-22] MEDS: ACETAMINOPHEN/ASPIRIN/CAFFEINE 250-250-65 MG TABLET 1 TABLET PO (12:48)
[2022-02-22 14:03] VITALS: BP 103/58; PULSE 75; RESP 18; TEMP 36.8; O2SAT 99
--- NOTE | 2022-02-22 14:37 | PM.DS ---
DS: Admitting Diagnosis Discharge Date 02/22/2022 Admitting Diagnosis Vertigo DS: Discharge Diagnosis Discharge Diagnosis (1) Vertigo: Code(s): R42 - Dizziness and giddiness Status: Acute Assessment and Plan: Most likely benign paroxysmal positional vertigo. Head CT was reviewed which showed no acute findings and CTA of head/neck had no evidence of occlusion or stenosis. Brain MRI was unremarkable. She had some symptomatic improvement with meclizine which she can continue for a short course as needed as an outpatient. She was referred to outpatient vestibular therapy. Follow-up with PCP (2) Hypothyroidism: Code(s): E03.9 - Hypothyroidism, unspecified Status: Acute Assessment and Plan: TSH slightly elevated at 4.69 with T4 0.99. Continue levothyroxine 150 mcg daily. Levothyroxine was recently increased by her PCP about 6 weeks ago. Patient is being referred to endocrinology (3) Depression with anxiety: Code(s): F41.8 - Other specified anxiety disorders Status: Chronic Assessment and Plan: no acute issues. Continue sertraline. DS: Summary Hospital Course Hospital Course: Date of admission: 02/20/2022 Date of discharge: 02/22/2022 Tami Duval is a 41-year-old female with a history of hypothyroidism, GERD, depression, and anxiety who presented to the emergency department on 02/20/2022 with complaints of dizziness with movement of her head. On presentation, her vital signs were stable, she was afebrile, laboratory workup was unremarkable, head CT showed no acute findings, and CTA of the head/neck revealed no evidence of occlusion or stenosis. Patient was admitted to the hospitalist service for further evaluation and management. Please see above for further details. She had mild symptomatic improvement with meclizine. Orthostatic vital signs negative. Patient had slow improvement and was ultimately able to ambulate independently. She has been referred for vestibular rehab outpatient PT. Short course of meclizine provided as needed for symptomatic relief. Discussed supportive care including measures to reduce sinus congestion. Patient recommended to take Flonase and Claritin daily for hopeful continued symptomatic improvement. She will follow-up with her PCP in 1 week for further monitoring. Discussed with the patient worrisome signs and symptoms for which to return and she was educated on her medications. She was feeling overall improved and felt comfortable with plans for discharge home. She was discharged in hemodynamically stable condition on 02/22/2022. Time Spent with Patient Time attestation: Total time spent providing and/or coordinating discharge services: 40 minutes Time spent: Greater than 30 minutes Exam Narrative: General: Well-nourished, well-appearing 41-year-old female, sitting up in bed, comfortable, NARD Neuro: awake, alert and oriented x4, speech clear, CN II-XII intact, no focal neuro deficits noted HEENMT: normocephalic, atraumatic, EOMI, sclerae anicteric Respiratory: clear to auscultation bilaterally, nonlabored breathing Cardio: regular rate, regular rhythm with S1-S2 Abdomen: nondistended, normoactive bowel sounds, soft, nontender to palpation Extremities: no edema, erythema, or tenderness to palpation, DP pulses 2+ bilaterally Skin: no rashes or lesions, warm and dry Psych: appropriate mood and affect, judgment and insight intact DS: Data Data Completed and Pending Labs on day of discharge: Labs from last 24 hours 02/22/22 02/22/22 02/21/22 04:20 04:20 04:45 WBC 7.9 RBC 3.80 L Hgb 12.0 Hct 36.6 L MCV 96.3 MCH 31.6 MCHC 32.8 RDW 15.4 H Plt Count 292 MPV 9.8 Sodium 134 L Potassium 4.2 Chloride 106 Carbon Dioxide 26 Anion Gap 2 L BUN 11 Creatinine 0.90 Estim Creat Clear Calc 72 Estimated GFR > 60 Glucose 94 Calcium 7.9 L Free T4
== END 2022-02-22 17:09 | disposition home or self-care (01) ==
LOC: ANHED 17:48 → ANH2MED 02-21 07:24
PROVIDERS: Emergency Medicine; Physician Assistant; Admitting Provider Internal Medicine; Emergency Provider Emergency Medicine; Visit Provider Physician Assistant
DX: R42 Dizziness and giddiness (principal); E03.9 Hypothyroidism, unspecified; Z23 Encounter for immunization; K21.9 Gastro-esophageal reflux disease without esophagitis; F41.8 Other specified anxiety disorders; Z87.891 Personal history of nicotine dependence; Z20.822 Contact with and (suspected) exposure to COVID-19
CPT/HCPCS: 36415; 70450; 70496; 70498; 70551; 80048; 80053; 83735; 84439; 84443; 84480; 85025; 85027; 87636; 90471; 90686; 93005; 96372; 96374; 99285; A9270; G0008; G0378; G0379; J3010; J3360; Q9967

== ENCOUNTER 2022-03-01 16:00 | Outpatient (CLI) | payer OTHER, SELFPAY ==
[2022-03-03 20:12] LABS: Thyrotropin Receptor Antibody 3.34 IU/L (<=2.00)
[2022-03-06 14:21] LABS: Thyroid Stimulating Immunoglob <89 % baseline (<140)
== END 2022-03-01 16:01 | disposition home or self-care (01) ==
LOC: ANHLAB 16:01
PROVIDERS: Visit Provider Internal Medicine
DX: E03.9 Hypothyroidism, unspecified (principal); E06.3 Autoimmune thyroiditis
CPT/HCPCS: 36415; 82306; 83519; 84445

== ENCOUNTER 2022-05-02 19:13 | Emergency (ER) | payer OTHER, SELFPAY ==
[2022-05-02 19:27] VITALS: BP 107/67; PULSE 85; RESP 16; TEMP 36.4; O2SAT 100
--- NOTE | 2022-05-02 19:34 | ED.URI ---
HPI - URI/Sore Throat General Chief Complaint: Upper Respiratory Infection Stated Complaint: Ears/Sore Throat/Aches Time Seen by Provider: 05/02/22 19:30 Source: patient Mode of arrival: ambulatory Limitations: no limitations History of Present Illness HPI Narrative: Maryann is a 41-year-old female patient presenting to the clinic today with complaints of sore throat, body aches, fatigue, and ear pain over the last few days. She reports that her daughter tested positive for strep last week. MD elicited complaint: sore throat, nasal congestion and other (Earache) Related Data Home Medications Medication Instructions Recorded Confirmed levothyroxine 125 mcg tablet 150 mcg PO DAILY 10/08/21 05/02/22 sertraline 50 mg tablet 50 mg PO DAILY 10/08/21 05/02/22 valacyclovir 500 mg tablet 500 mg PO DAILY 10/08/21 05/02/22 omeprazole 20 mg capsule,delayed 20 mg PO DAILY 01/30/22 05/02/22 release Allergies Allergy/AdvReac Type Severity Reaction Status Date / Time No Known Allergies Allergy Verified 03/01/22 13:38 Review of Systems Review of Systems: Pertinent positives per HPI. Patient denies any fever, chills, rash, headache, visual changes, dizziness, cough, shortness of breath, chest pain, palpitations, nausea, vomiting, diarrhea, constipation, abdominal pain, or any urinary issues. [facility] Past Medical History Medical History Depression with anxiety Gastroesophageal reflux disease Brittaney's disease Hypothyroidism Surgical History Surgical History History of benign breast biopsy History of cholecystectomy History of colonoscopy with polypectomy History of esophagogastroduodenoscopy History of removal of ovarian cyst History of tonsillectomy Family History Family History Mother Acute myocardial infarction Asthma Cerebrovascular accident Congestive heart failure Diabetes mellitus Hypertension Thyroid disease Father Asthma Cerebrovascular accident Chronic obstructive pulmonary disease Grandparent Colon cancer Social History Social History Social History: Surrogate medical decision maker: Alicia Duval, daughter. Code status: Full code. Smoking status: Former smoker Alcohol intake: current Drinks per week: 2 Alcohol use details: Rare alcohol use. Substance use: never Substance use type: does not use Lack of Transportation: No Lack of Food: Never True Current Housing: I Have Housing Concerned About Future Housing: No Difficulty Paying Gas/Electric Bills: No Difficulty Paying for Meds: No Currently Unemployed: No Education: Bachelor's Degree Difficulty w/ Childcare or Family Care: No Living arrangements: with family Additional living arrangements comments: Lives in [place] with family. 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 Spiritual care concerns: No Comments At the time of my signature, I reviewed and agree with the nursing past medical, surgical, social, and family history. There is no relevant family history pertinent to the patient complaint. Exam Narrative: General: Well-developed, well nourished, in no apparent distress Head: Normocephalic, atraumatic Eyes: Pupils equally round and reactive to light bilaterally, EOM intact, sclera and conjunctive clear, no discharge, lids normal Ears: TMs intact, dull, red, ear canals clear, no drainage, grossly hearing normal. Nose: Nares patent, clear nasal discharge, no inflammation, no sinus tenderness. Mouth: Oral pharynx red without lesions or masses, good dentition, MMM. Tonsils surgically absent Neck: Supple, trachea midline, no enlargement of anterior or posterior cervical nodes, no thyroid masses or goiter palpable. Cardio: R
== END 2022-05-02 19:42 | disposition home or self-care (01) ==
PROVIDERS: Emergency Provider Nurse Practitioner Family
DX: J06.9 Acute upper respiratory infection, unspecified (principal); J02.9 Acute pharyngitis, unspecified; B34.9 Viral infection, unspecified; K21.9 Gastro-esophageal reflux disease without esophagitis; E06.3 Autoimmune thyroiditis; E03.9 Hypothyroidism, unspecified
CPT/HCPCS: 87081; 87880; 99213; G0463

== ENCOUNTER 2022-08-03 12:59 | Emergency (ER) | payer OTHER, SELFPAY ==
[2022-08-03 13:16] VITALS: BP 119/77; PULSE 66; RESP 18; TEMP 36.8; O2SAT 100
--- NOTE | 2022-08-03 13:35 | ED.URI ---
HPI - URI/Sore Throat General Chief Complaint: Upper Respiratory Infection Stated Complaint: not feeling well Time Seen by Provider: 08/03/22 13:19 Source: patient and RN notes reviewed Mode of arrival: ambulatory Limitations: no limitations History of Present Illness HPI Narrative: Patient presents today complaining of a 2 day history of headache, ear clogging, rhinorrhea, sore throat. She reports some dizziness and nausea that started this morning. She currently rates her pain 5/10 and has been taking ibuprofen and Tylenol with mild relief. Denies shortness of breath. No history of asthma or COPD. Related Data Home Medications Medication Instructions Recorded Confirmed levothyroxine 125 mcg tablet 150 mcg PO DAILY 10/08/21 08/03/22 sertraline 50 mg tablet 50 mg PO DAILY 10/08/21 08/03/22 valacyclovir 500 mg tablet 500 mg PO DAILY 10/08/21 08/03/22 omeprazole 20 mg capsule,delayed 20 mg PO DAILY 01/30/22 08/03/22 release Allergies Allergy/AdvReac Type Severity Reaction Status Date / Time No Known Allergies Allergy Verified 08/03/22 13:19 Review of Systems Review of Systems: CONSTITUTIONAL: Denies body aches, fever, chills, or sweats. EYES: Denies visual changes, redness, or discharge. ENT: Denies congestion. + ear clogging, rhinorrhea, sore throat CARDIOVASCULAR: Denies chest pain, palpitations, or edema. RESPIRATORY: Denies cough or dyspnea. GASTROINTESTINAL: Denies abdominal pain, vomiting, or diarrhea.+ nausea GENITOURINARY: Denies dysuria or hematuria. SKIN: Denies rash, itching, or wounds. MUSCULOSKELETAL: Denies back pain, joint pain, or myalgia. NEUROLOGIC: Denies numbness, tingling, or weakness.+ headache, dizziness PSYCH: Denies depression or anxiety. [facility] Past Medical History Medical History Depression with anxiety Gastroesophageal reflux disease Brittaney's disease Hypothyroidism Surgical History Surgical History History of benign breast biopsy History of cholecystectomy History of colonoscopy with polypectomy History of esophagogastroduodenoscopy History of removal of ovarian cyst History of tonsillectomy Family History Family History Mother Acute myocardial infarction Asthma Cerebrovascular accident Congestive heart failure Diabetes mellitus Hypertension Thyroid disease Father Asthma Cerebrovascular accident Chronic obstructive pulmonary disease Grandparent Colon cancer Social History Social History Social History: Surrogate medical decision maker: Alicia Duval, daughter. Code status: Full code. Smoking status: Former smoker Alcohol intake: current Drinks per week: 2 Alcohol use details: Rare alcohol use. Substance use: never Substance use type: does not use Lack of Transportation: No Lack of Food: Never True Current Housing: I Have Housing Concerned About Future Housing: No Difficulty Paying Gas/Electric Bills: No Difficulty Paying for Meds: No Currently Unemployed: No Education: Bachelor's Degree Difficulty w/ Childcare or Family Care: No Living arrangements: with family Additional living arrangements comments: Lives in [place] with family. 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 Spiritual care concerns: No Comments At time of signature, I have reviewed and agree with nursing past medical, surgical, social and family history unless otherwise noted. Please see nursing chart for further information. There is no relevant family history pertinent to the presenting complaint Exam Narrative: GENERAL: Mildly ill-appearing, well-nourished, and in no acute distress. HEAD: Normocephalic, atraumatic. EYES: EOMI. PERRL. No nystagmus. no
== END 2022-08-03 13:54 | disposition home or self-care (01) ==
PROVIDERS: Emergency Provider Nurse Practitioner
DX: J06.9 Acute upper respiratory infection, unspecified (principal); H65.03 Acute serous otitis media, bilateral; Z87.891 Personal history of nicotine dependence; K21.9 Gastro-esophageal reflux disease without esophagitis; E03.9 Hypothyroidism, unspecified; E06.3 Autoimmune thyroiditis
CPT/HCPCS: 99213; G0463

== ENCOUNTER 2022-08-15 19:05 | Emergency (ER) | payer OTHER, SELFPAY ==
--- NOTE | ~2022-08-15 | XR_ITS ---
EXAMINATION: XR chest 2V DATE: 08/15/2022 19:25 INDICATION: Cough. TECHNIQUE: Frontal and lateral views of the chest were obtained. COMPARISON: None. FINDINGS: There is no pneumonia, pleural effusion, or pneumothorax. The heart size is normal. IMPRESSION: 1. No acute cardiopulmonary disease. Reviewed, dictated and finalized at location E.
[2022-08-15 19:09] VITALS: BP 122/53; PULSE 71; RESP 16; TEMP 36.6; O2SAT 97
--- NOTE | 2022-08-15 19:11 | ED.URI ---
HPI - URI/Sore Throat General Chief Complaint: Upper Respiratory Infection Stated Complaint: Cough Time Seen by Provider: 08/15/22 19:11 Source: patient, RN notes reviewed and old records reviewed Mode of arrival: ambulatory Limitations: no limitations History of Present Illness HPI Narrative: 42-year-old female presents to the [facility] with complaints of a cough for 3 days. Reports that it feels like her throat is on fire. Related Data Home Medications Medication Instructions Recorded Confirmed levothyroxine 125 mcg tablet 150 mcg PO DAILY 10/08/21 08/03/22 sertraline 50 mg tablet 50 mg PO DAILY 10/08/21 08/03/22 valacyclovir 500 mg tablet 500 mg PO DAILY 10/08/21 08/03/22 omeprazole 20 mg capsule,delayed 20 mg PO DAILY 01/30/22 08/03/22 release meclizine 25 mg tablet 25 mg PO QID dizziness 08/15/22 Allergies Allergy/AdvReac Type Severity Reaction Status Date / Time No Known Allergies Allergy Verified 08/15/22 19:11 Review of Systems Review of Systems: All systems reviewed & are unremarkable except as noted in HPI and below Constitutional: Constitutional: Reports no additional constitutional complaints Eyes: Eyes: Reports no additional eye complaints ENT: Reports as per HPI Cardiovascular: Cardiovascular: Reports no additional cardiovascular complaints, Denies chest pain and Denies dyspnea Respiratory: Respiratory: Reports as per HPI, Denies chest congestion, Reports cough and Denies dyspnea Gastrointestinal: Gastrointestinal: Reports no additional gastrointestinal complaints, Denies abdominal pain, Denies nausea and Denies vomiting Musculoskeletal: Musculoskeletal: Reports no additional musculoskeletal complaints Integumentary/Breasts: Skin/Breast: Reports system reviewed and no additional complaints, except as docu Neurologic: Reports system reviewed and no additional complaints, except as documented Psychiatric: Psychiatric: Reports no additional psychiatric complaints Allergic/Immunologic: Allergic/Immunologic: Reports no additional allergic/immunologic complaints PMFSH Past Medical History Medical History Depression with anxiety Gastroesophageal reflux disease Brittaney's disease Hypothyroidism Surgical History Surgical History History of benign breast biopsy History of cholecystectomy History of colonoscopy with polypectomy History of esophagogastroduodenoscopy History of removal of ovarian cyst History of tonsillectomy Family History Family History Mother Acute myocardial infarction Asthma Cerebrovascular accident Congestive heart failure Diabetes mellitus Hypertension Thyroid disease Father Asthma Cerebrovascular accident Chronic obstructive pulmonary disease Grandparent Colon cancer Social History Social History Social History: Surrogate medical decision maker: Alicia Duval, daughter. Code status: Full code. Smoking status: Former smoker Alcohol intake: current Drinks per week: 2 Alcohol use details: Rare alcohol use. Substance use: never Substance use type: does not use Lack of Transportation: No Lack of Food: Never True Current Housing: I Have Housing Concerned About Future Housing: No Difficulty Paying Gas/Electric Bills: No Difficulty Paying for Meds: No Currently Unemployed: No Education: Bachelor's Degree Difficulty w/ Childcare or Family Care: No Living arrangements: with family Additional living arrangements comments: Lives in [place] with family. 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 Spiritual care concerns: No Comments At the time of my signature, I reviewed and agree with the nursing past medical, surgical, social, and family history. There is no re
== END 2022-08-15 19:46 | disposition home or self-care (01) ==
PROVIDERS: Emergency Provider Nurse Practitioner
DX: J40 Bronchitis, not specified as acute or chronic (principal); K21.9 Gastro-esophageal reflux disease without esophagitis; E03.9 Hypothyroidism, unspecified; Z87.891 Personal history of nicotine dependence
CPT/HCPCS: 71046; 87081; 87880; 99213; G0463

== ENCOUNTER 2022-09-12 14:42 | Outpatient (CLI) | payer OTHER, SELFPAY ==
[2022-09-12 16:28] LABS: Hematocrit 37.8 % (37.0-47.0); Hemoglobin 12.5 g/dL (12.0-15.0); Mean Corpuscular HGB Conc 33.1 g/dl (32-36); Mean Corpuscular Hemoglobin 30.6 pg (26-34); Mean Corpuscular Volume 92.4 fl (80-100); Platelet Count Result 335 k/mm3 (150-375); Red Blood Count 4.09 M/mm3 (4.2-5.4); White Blood Count 9.2 K/mm3 (4.5-10.0)
[2022-09-12 16:44] LABS: Alanine Aminotransferase 26 U/L (6-35); Albumin Level 4.2 g/dL (3.5-5.1); Alkaline Phosphatase 54 U/L (38-126); Anion Gap 4 mmol/L (8-16); Aspartate Amino Transferase 36 U/L (14-36); Bilirubin,Total 0.4 mg/dL (0.2-1.3); Blood Urea Nitrogen 12 mg/dL (7-17); Calcium 8.9 mg/dL (8.4-10.2); Carbon Dioxide 27 mmol/L (22-30); Chloride 102 mmol/L (98-107); Cholesterol 163 mg/dL (0-200); Estimated Glomerular Filt Rate > 60; Glucose 80 mg/dL (65-110); HDL Direct 71 mg/dL; Potassium 3.6 mmol/L (3.4-5.0); Sodium 133 mmol/L (137-145); Triglycerides 42 mg/dL (<150)
[2022-09-12 16:55] LABS: LDL Cholesterol Direct 76 mg/dL
== END 2022-09-12 14:43 | disposition home or self-care (01) ==
DX: R53.83 Other fatigue (principal); Z13.220 Encounter for screening for lipoid disorders; E03.9 Hypothyroidism, unspecified
CPT/HCPCS: 36415; 80053; 80061; 84443; 85027

== ENCOUNTER 2022-11-08 14:10 | Emergency (ER) | payer OTHER, SELFPAY ==
[2022-11-08 14:13] VITALS: BP 123/72; PULSE 83; RESP 14; TEMP 36.6; O2SAT 100
--- NOTE | 2022-11-08 15:05 | ED.BACK ---
HPI - Back Pain/Injury General Chief Complaint: Back Pain/Injury Stated Complaint: right back and hip pain Time Seen by Provider: 11/08/22 14:58 History of Present Illness HPI Narrative: Patient is a 42-year-old female with history of Brittaney's, degenerative disc disease here with lower back pain. She states that over the last 3 days she has had progressively worsening lower back pain. Back pain is over her bilateral lower back, no midline pain. She notes that the pain is sharp, worse on the right than the left and radiates down into her right buttock. Pain is worse with movement like twisting or lifting her right leg. She does note she has been taking Aleve and ibuprofen with minimal relief of symptoms. Last dose of ibuprofen was 800 mg around 9:00 a.m. today. She does note a prior history of disc disease which was found on an MRI many years ago. No recent trauma or falls. She denies any numbness or weakness in her lower extremities. She denies any bowel or bladder incontinence. She denies any saddle anesthesia. No history of IV drug use or cancer. No fever or chills. No urinary symptoms. Related Data Home Medications Medication Instructions Recorded Confirmed levothyroxine 125 mcg tablet 150 mcg PO DAILY 10/08/21 08/03/22 sertraline 50 mg tablet 50 mg PO DAILY 10/08/21 08/03/22 valacyclovir 500 mg tablet 500 mg PO DAILY 10/08/21 08/03/22 omeprazole 20 mg capsule,delayed 20 mg PO DAILY 01/30/22 08/03/22 release meclizine 25 mg tablet 25 mg PO QID dizziness 08/15/22 Allergies Allergy/AdvReac Type Severity Reaction Status Date / Time No Known Allergies Allergy Verified 11/08/22 14:15 Review of Systems Review of Systems: All systems reviewed & are unremarkable except as noted in HPI and below PMFSH Past Medical History Medical History Depression with anxiety Gastroesophageal reflux disease Brittaney's disease Hypothyroidism Surgical History Surgical History History of benign breast biopsy History of cholecystectomy History of colonoscopy with polypectomy History of esophagogastroduodenoscopy History of removal of ovarian cyst History of tonsillectomy Family History Family History Mother Acute myocardial infarction Asthma Cerebrovascular accident Congestive heart failure Diabetes mellitus Hypertension Thyroid disease Father Asthma Cerebrovascular accident Chronic obstructive pulmonary disease Grandparent Colon cancer Social History Social History Social History: Surrogate medical decision maker: Alicia Duval, daughter. Code status: Full code. Smoking status: Former smoker Alcohol intake: current Drinks per week: 2 Alcohol use details: Rare alcohol use. Substance use: never Substance use type: does not use Lack of Transportation: No Lack of Food: Never True Current Housing: I Have Housing Concerned About Future Housing: No Difficulty Paying Gas/Electric Bills: No Difficulty Paying for Meds: No Currently Unemployed: No Education: Bachelor's Degree Difficulty w/ Childcare or Family Care: No Living arrangements: with family Additional living arrangements comments: Lives in [place] with family. 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 Spiritual care concerns: No Exam Narrative: GENERAL: Well-appearing, well-nourished, and in no acute distress. HEAD: Normocephalic, atraumatic. EYES: PERRLA and EOMI. ENT: Nares clear. Mucous membranes moist. NECK: Supple. CHEST: Clear to auscultation. No respiratory distress. HEART: Regular rate and rhythm. Normal peripheral pulses. ABDOMEN: Soft, nontender, nondistended. EXTREMITIES: Normal range of motion. No calf edema. Normal strength and se
[2022-11-08] MEDS: HYDROcodone/acetaminophen (*CRX) 10-325 MG TABLET 1 TAB PO (15:32)
[2022-11-08] MEDS: CYCLOBENZAPRINE HCL 10 MG TABLET PO (15:32)
[2022-11-08 16:03] LABS: Appearance Urine Clear (Clear); Bilirubin Urine Negative (Negative); Blood Urine Negative (Negative); Color Urine Yellow (Yellow); Glucose Urine UA Negative (Negative); Ketones Urine Negative (Negative); Leukocyte Esterase Ur Negative LEU/UL (Negative); Nitrate Urine Negative (Negative); Protein Urine Negative (Negative); Specific Grav Ur 1.008 (1.001-1.035); Urobilinogen Urine 0.2 mg/dL (<2.0); pH Urine 5.5 (5.0-9.0)
[2022-11-08 16:10] LABS: Add Urine Microscopic? NO
[2022-11-08 17:53] VITALS: BP 120/72; PULSE 68; RESP 17; O2SAT 100
== END 2022-11-08 17:54 | disposition home or self-care (01) ==
PROVIDERS: Emergency Provider Student in an Organized Health Care Education/Training Program
DX: M54.41 Lumbago with sciatica, right side (principal); E06.3 Autoimmune thyroiditis; E03.9 Hypothyroidism, unspecified; K21.9 Gastro-esophageal reflux disease without esophagitis; F41.8 Other specified anxiety disorders; Z90.49 Acquired absence of other specified parts of digestive tract
CPT/HCPCS: 81003; 81025; 99283; A9270

== ENCOUNTER 2022-12-07 11:01 | Emergency (ER) | payer OTHER, SELFPAY ==
--- NOTE | ~2022-12-07 | CT_ITS ---
EXAMINATION: CT lumbar spine wo con DATE: 12/07/2022 12:05 INDICATION: Midline tenderness. Injury. TECHNIQUE: Computed tomography (CT) of the lumbar spine was performed without intravenous contrast. A utomated exposure control and iterative reconstruction technique were employed. The dose-length produ ct was 568.78 mGy-cm. COMPARISON: None FINDINGS: There is a 2.6 cm cyst in right ovary, likely a follicular cyst. Bone alignment is normal. No fracture. There is moderately decreased disc height at L4-L5. The following disc levels are specif ically discussed: L1-L2: The disc does not extend beyond the endplate margin. There is no facet joint osteoarthritis. T here is no neural foraminal stenosis. There is no central canal stenosis. L2-L3: The disc does not extend beyond the endplate margin. There is no facet joint osteoarthritis. T here is no neural foraminal stenosis. There is no central canal stenosis. L3-L4: The disc does not extend beyond the endplate margin. There is mild bilateral facet joint osteo arthritis. There is no neural foraminal stenosis. There is no central canal stenosis. L4-L5: The disc is bulging. There is mild right facet joint osteoarthritis. There is mild bilateral n eural foraminal stenosis. There is mild central canal stenosis. L5-S1: The disc does not extend beyond the endplate margin. There is moderate bilateral facet joint o steoarthritis. There is no neural foraminal stenosis. There is no central canal stenosis. IMPRESSION: 1. Moderate lumbar spondylosis. Reviewed, dictated and finalized at location E.
[2022-12-07 11:06] VITALS: BP 130/79; PULSE 77; RESP 18; TEMP 36.1; O2SAT 100
--- NOTE | 2022-12-07 11:40 | ED.BACK ---
HPI - Back Pain/Injury General Chief Complaint: Back Pain/Injury Stated Complaint: back pain Time Seen by Provider: 12/07/22 11:26 History of Present Illness HPI Narrative: 42-year-old female with a history of Brittaney's and back pain reports for evaluation for low back pain for the past few weeks, right worse yesterday after an injury at work. Patient was evaluated in the ED on 11/08/2022 for back pain. She was prescribed Flexeril and oxycodone and encouraged to follow-up with her PCP. States she did follow-up with her PCP who advised her to see a chiropractor. She has been going to the chiropractor approximately 1-2 times per week with some improvement. 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 States immediately after she began having significantly worsening pain in her low back. She went to her chiropractor yesterday after the injury who adjusted her without relief. Patient states the pain is in her low back and radiates across the left and lower sides. She denies pain radiating down her legs. States the pain is worse with any sort of movement of her legs or torso. She had an MRI years ago that showed herniated disks. She denies fever, IV drug use, history of steroids or immunosuppressants, history of cancer, urinary complaints, saddle anesthesia, lower extremity weakness or numbness, bowel or bladder incontinence or retention. Related Data Home Medications Medication Instructions Recorded Confirmed levothyroxine 125 mcg tablet 150 mcg PO DAILY 10/08/21 08/03/22 sertraline 50 mg tablet 50 mg PO DAILY 10/08/21 08/03/22 valacyclovir 500 mg tablet 500 mg PO DAILY 10/08/21 08/03/22 omeprazole 20 mg capsule,delayed 20 mg PO DAILY 01/30/22 08/03/22 release meclizine 25 mg tablet 25 mg PO QID dizziness 08/15/22 Allergies Allergy/AdvReac Type Severity Reaction Status Date / Time No Known Allergies Allergy Verified 11/08/22 14:15 Review of Systems Review of Systems: CONSTITUTIONAL: Denies fever, chills EYES: Denies visual changes, redness, or discharge. ENT: Denies rhinorrhea, congestion, sore throat, or otalgia. CARDIOVASCULAR: Denies chest pain, palpitations, or edema. RESPIRATORY: Denies cough or dyspnea. GASTROINTESTINAL: Denies abdominal pain, nausea, vomiting, or diarrhea. GENITOURINARY: Denies dysuria or hematuria. SKIN: Denies rash or itching. MUSCULOSKELETAL: See HPI NEUROLOGIC: Denies headache, numbness, dizziness, or weakness. PSYCHIATRIC: Denies anxiety or depression. [facility] Past Medical History Medical History Depression with anxiety Gastroesophageal reflux disease Brittaney's disease Hypothyroidism Surgical History Surgical History History of benign breast biopsy History of cholecystectomy History of colonoscopy with polypectomy History of esophagogastroduodenoscopy History of removal of ovarian cyst History of tonsillectomy Family History Family History Mother Acute myocardial infarction Asthma Cerebrovascular accident Congestive heart failure Diabetes mellitus Hypertension Thyroid disease Father Asthma Cerebrovascular accident Chronic obstructive pulmonary disease Grandparent Colon cancer Social History Social History Social History: Surrogate medical decision maker: Alicia Duval, daughter. Code status: Full code. Smoking status: Former smoker Alcohol intake: current Drinks per week: 2 Alcohol use details: Rare alcohol use. Substance use: never Substance use type: does not use Lack of Transportation: No Lack of Food: Never True Current Housing: I Have Housing Concerned About Future Housing: No Difficulty P
[2022-12-07] MEDS: CYCLOBENZAPRINE HCL 10 MG TABLET PO (11:52)
[2022-12-07] MEDS: HYDROcodone/acetaminophen (*CRX) 5-325 MG TABLET 1 TAB PO (11:52)
[2022-12-07] MEDS: LIDOCAINE 5% PATCH 1 PATCH TRANSDERM (11:53)
[2022-12-07 12:04] LABS: Appearance Urine Clear (Clear); Bilirubin Urine Negative (Negative); Blood Urine Negative (Negative); Color Urine Yellow (Yellow); Glucose Urine UA Negative (Negative); Ketones Urine Negative (Negative); Leukocyte Esterase Ur Negative LEU/UL (Negative); Nitrate Urine Negative (Negative); Protein Urine Negative (Negative); Specific Grav Ur 1.011 (1.001-1.035); Urobilinogen Urine 0.2 mg/dL (<2.0)
[2022-12-07 12:20] LABS: Add Urine Microscopic? NO
[2022-12-07] MEDS: KETOROLAC 30 MG/ML VIAL (*BKC) IM (12:46)
== END 2022-12-07 12:55 | disposition home or self-care (01) ==
PROVIDERS: Emergency Provider Physician Assistant
DX: M47.816 Spondylosis without myelopathy or radiculopathy, lumbar region (principal); M51.36 Other intervertebral disc degeneration, lumbar region; E06.3 Autoimmune thyroiditis; E03.9 Hypothyroidism, unspecified; K21.9 Gastro-esophageal reflux disease without esophagitis; F41.8 Other specified anxiety disorders; Z90.49 Acquired absence of other specified parts of digestive tract; Z87.891 Personal history of nicotine dependence
CPT/HCPCS: 72131; 81003; 81025; 96372; 99284; A9270; J1885

== ENCOUNTER 2023-01-05 17:43 | Emergency (ER) | payer OTHER, SELFPAY ==
[2023-01-05 18:09] VITALS: BP 141/76; PULSE 72; RESP 16; TEMP 37.2; O2SAT 98
--- NOTE | 2023-01-05 18:49 | ED.URI ---
HPI - URI/Sore Throat General Chief Complaint: Upper Respiratory Infection Stated Complaint: Sinus Time Seen by Provider: 01/05/23 18:44 Source: patient and RN notes reviewed Mode of arrival: ambulatory Limitations: no limitations History of Present Illness HPI Narrative: Patient presents today with a 4 to five-day history of congestion, rhinorrhea, hoarseness, postnasal drip, cough, body aches, headache, sore throat, subjective fever, shortness of breath with exertion. She currently rates her discomfort 09/14 and has been taking DayQuil and NyQuil as well as Benadryl without much relief. Denies history of asthma or COPD. She is a nonsmoker. Related Data Home Medications Medication Instructions Recorded Confirmed levothyroxine 125 mcg tablet 150 mcg PO DAILY 10/08/21 08/03/22 sertraline 50 mg tablet 50 mg PO DAILY 10/08/21 08/03/22 valacyclovir 500 mg tablet 500 mg PO DAILY 10/08/21 08/03/22 omeprazole 20 mg capsule,delayed 20 mg PO DAILY 01/30/22 08/03/22 release meclizine 25 mg tablet 25 mg PO QID dizziness 08/15/22 etonogestrel 0.12 mg-ethinyl vag ring vaginal 01/05/23 estradiol 0.015 mg/24 hr vaginal ring methylphenidate HCl 10 mg tablet mg 01/05/23 Allergies Allergy/AdvReac Type Severity Reaction Status Date / Time No Known Allergies Allergy Verified 01/05/23 18:04 Review of Systems Review of Systems: CONSTITUTIONAL:+ body aches, subjective fever EYES: Denies visual changes, redness, or discharge. ENT: + rhinorrhea, congestion, hoarseness, postnasal drip, sore throat CARDIOVASCULAR: Denies chest pain, palpitations, or edema. RESPIRATORY: + cough, shortness of breath with exertion GASTROINTESTINAL: Denies abdominal pain, nausea, vomiting, or diarrhea. GENITOURINARY: Denies dysuria or hematuria. SKIN: Denies rash, itching, or wounds. MUSCULOSKELETAL: Denies back pain, joint pain, or myalgia. NEUROLOGIC: Denies numbness, tingling, or weakness.+ headache PSYCH: Denies depression or anxiety. [facility] Past Medical History Medical History Depression with anxiety Gastroesophageal reflux disease Brittaney's disease Hypothyroidism Surgical History Surgical History History of benign breast biopsy History of cholecystectomy History of colonoscopy with polypectomy History of esophagogastroduodenoscopy History of removal of ovarian cyst History of tonsillectomy Family History Family History Mother Acute myocardial infarction Asthma Cerebrovascular accident Congestive heart failure Diabetes mellitus Hypertension Thyroid disease Father Asthma Cerebrovascular accident Chronic obstructive pulmonary disease Grandparent Colon cancer Social History Social History Social History: Surrogate medical decision maker: Alicia Duval, daughter. Code status: Full code. Smoking status: Former smoker Alcohol intake: current Drinks per week: 2 Alcohol use details: Rare alcohol use. Substance use: never Substance use type: does not use Lack of Transportation: No Lack of Food: Never True Current Housing: I Have Housing Concerned About Future Housing: No Difficulty Paying Gas/Electric Bills: No Difficulty Paying for Meds: No Currently Unemployed: No Education: Bachelor's Degree Difficulty w/ Childcare or Family Care: No Living arrangements: with family Additional living arrangements comments: Lives in [place] with family. 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 Spiritual care concerns: No Comments At time of signature, I have reviewed and agree with nursing past medical, surgical, social and family history unless otherwise noted. Please see nursing chart for further information. T
== END 2023-01-05 19:32 | disposition home or self-care (01) ==
PROVIDERS: Emergency Provider Nurse Practitioner
DX: J06.9 Acute upper respiratory infection, unspecified (principal); Z20.822 Contact with and (suspected) exposure to COVID-19; Z87.891 Personal history of nicotine dependence; K21.9 Gastro-esophageal reflux disease without esophagitis; E06.3 Autoimmune thyroiditis; E03.9 Hypothyroidism, unspecified; F41.8 Other specified anxiety disorders
CPT/HCPCS: 87426; 87804; 99213; C9803; G0463

== ENCOUNTER 2023-03-26 15:34 | Outpatient (CLI) | payer BC, MEDICAID, SELFPAY ==
--- NOTE | ~2023-03-26 | MM_ITS ---
EXAMINATION: MM screening [facility] BI w [facility] HISTORY: Screening TECHNIQUE: Craniocaudal and mediolateral oblique 3-D tomosynthesis images were obtained and synthetic 2-D images were generated. CAD analysis was submitted and interpreted. COMPARISON: Comparison to multiple prior studies sequentially, with oldest reviewed study dated 03/25. BREAST PARENCHYMAL COMPOSITION: Not dense: There are scattered areas of fibroglandular density. FINDINGS: There is no evidence of suspicious mass, calcification, or architectural distortion to sugg est malignancy in either breast. There has been no suspicious interval change. IMPRESSION: 1. No mammographic evidence of malignancy. 2. Recommend routine screening mammography in one year. BI-RADS Category 1: Negative Reviewed, dictated and finalized at location A. [employer]
== END 2023-03-26 15:35 | disposition home or self-care (01) ==
LOC: ANHIMG 15:43
DX: Z12.31 Encounter for screening mammogram for malignant neoplasm of breast (principal)
CPT/HCPCS: 77063; 77067

== ENCOUNTER 2023-04-26 13:37 | Outpatient (CLI) | payer BC, MEDICAID, SELFPAY ==
[2023-04-26 14:17] LABS: Appearance Urine Clear (Clear); Bilirubin Urine Negative (Negative); Blood Urine Negative (Negative); Color Urine Yellow (Yellow); Glucose Urine UA Negative (Negative); Ketones Urine Negative (Negative); Leukocyte Esterase Ur Negative LEU/UL (Negative); Nitrate Urine Negative (Negative); Protein Urine Negative (Negative); Specific Grav Ur 1.007 (1.001-1.035); Urobilinogen Urine 0.2 mg/dL (<2.0)
[2023-04-26 14:22] LABS: Add Urine Microscopic? NO
== END 2023-04-26 13:38 | disposition home or self-care (01) ==
DX: R30.0 Dysuria (principal)
CPT/HCPCS: 81001

== ENCOUNTER 2023-06-02 14:06 | Emergency (ER) | payer BC, MEDICAID, SELFPAY ==
[2023-06-02 14:16] VITALS: BP 125/69; PULSE 80; RESP 14; TEMP 36.4; O2SAT 100
--- NOTE | 2023-06-02 14:28 | ED.DENTAL ---
HPI - Dental/Oral General Chief complaint: Dental/Oral Stated complaint: Dental Pain Time Seen by Provider: 06/02/23 14:21 Source: patient and RN notes reviewed Mode of arrival: ambulatory Limitations: no limitations History of Present Illness HPI Narrative: Patient presents today complaining of pain to her anterior lower gumline. Five days ago she had oral surgery and had a gum graft. She was told to take Tylenol and ibuprofen, which she has been doing around the clock. There was some putty in place over the area that has since fallen off as scheduled. After this time, her pain has increased. She attempted to reach her surgeon, but they were closed yesterday. States they do not have anyone on-call at [facility]. She currently rates her pain 08/14. Related Data Home Medications Medication Instructions Recorded Confirmed levothyroxine 125 mcg tablet 150 mcg PO DAILY 10/08/21 06/02/23 sertraline 50 mg tablet 50 mg PO DAILY 10/08/21 06/02/23 valacyclovir 500 mg tablet 500 mg PO DAILY 10/08/21 06/02/23 omeprazole 20 mg capsule,delayed 20 mg PO DAILY 01/30/22 06/02/23 release etonogestrel 0.12 mg-ethinyl 1 vag ring vaginal DAILY 01/05/23 06/02/23 estradiol 0.015 mg/24 hr vaginal ring methylphenidate HCl 10 mg tablet 10 mg PO DAILY 01/05/23 06/02/23 Allergies Allergy/AdvReac Type Severity Reaction Status Date / Time No Known Allergies Allergy Verified 06/02/23 14:08 Review of Systems Review of Systems: CONSTITUTIONAL: Denies body aches, fever, chills, or sweats. EYES: Denies visual changes, redness, or discharge. ENT: Denies rhinorrhea, congestion, sore throat, or otalgia.+ mouth pain CARDIOVASCULAR: Denies chest pain, palpitations, or edema. RESPIRATORY: Denies cough or dyspnea. GASTROINTESTINAL: Denies abdominal pain, nausea, vomiting, or diarrhea. GENITOURINARY: Denies dysuria or hematuria. SKIN: Denies rash, itching, or wounds. MUSCULOSKELETAL: Denies back pain, joint pain, or myalgia. NEUROLOGIC: Denies headache, numbness, tingling, or weakness. PSYCH: Denies depression or anxiety. [facility] Past Medical History Medical History Depression with anxiety Gastroesophageal reflux disease Brittaney's disease Hypothyroidism Surgical History Surgical History History of benign breast biopsy History of cholecystectomy History of colonoscopy with polypectomy History of esophagogastroduodenoscopy History of removal of ovarian cyst History of tonsillectomy Family History Family History Mother Acute myocardial infarction Asthma Cerebrovascular accident Congestive heart failure Diabetes mellitus Hypertension Thyroid disease Father Asthma Cerebrovascular accident Chronic obstructive pulmonary disease Grandparent Colon cancer Social History Social History Social History: Surrogate medical decision maker: Alicia Duval, daughter. Code status: Full code. Smoking status: Former smoker Alcohol intake: current Drinks per week: 2 Alcohol use details: Rare alcohol use. Substance use: never Substance use type: does not use Lack of Transportation: No Lack of Food: Never True Current Housing: I Have Housing Concerned About Future Housing: No Difficulty Paying Gas/Electric Bills: No Difficulty Paying for Meds: No Currently Unemployed: No Education: Bachelor's Degree Difficulty w/ Childcare or Family Care: No Living arrangements: with family Additional living arrangements comments: Lives in [place] with family. 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 Spiritual care concerns: No Comments At time of signature, I have reviewed and agree with nursing past medical, surgical, social an
== END 2023-06-02 14:35 | disposition home or self-care (01) ==
PROVIDERS: Emergency Provider Nurse Practitioner
DX: G89.18 Other acute postprocedural pain (principal); Z87.891 Personal history of nicotine dependence; K21.9 Gastro-esophageal reflux disease without esophagitis; E06.3 Autoimmune thyroiditis; E03.9 Hypothyroidism, unspecified; F41.8 Other specified anxiety disorders
CPT/HCPCS: 99213; G0463

== ENCOUNTER 2023-06-28 12:57 | Emergency (ER) | payer BC, MEDICAID, SELFPAY ==
[2023-06-28 13:09] VITALS: BP 128/81; PULSE 87; RESP 16; TEMP 37.1; O2SAT 100
--- NOTE | 2023-06-28 13:15 | ED.URI ---
HPI - URI/Sore Throat General Chief Complaint: Upper Respiratory Infection Stated Complaint: Cough Time Seen by Provider: 06/28/23 13:10 Source: patient Mode of arrival: ambulatory Limitations: no limitations History of Present Illness HPI Narrative: Tami is a 42-year-old female patient presenting to the clinic today with complaints of cough, nasal congestion, chest congestion, sore throat, fever, headache, and dizziness x3 days. She reports her highest temperature was 102?. Last temperature was last night. Has taken DayQuil/NyQuil/ibuprofen/Zyrtec for her symptoms. MD elicited complaint: fever, cough, sore throat, rhinorrhea, nasal congestion and other (Headache, chest congestion, dizziness) Related Data Home Medications Medication Instructions Recorded Confirmed levothyroxine 125 mcg tablet 150 mcg PO DAILY 10/08/21 06/28/23 sertraline 50 mg tablet 50 mg PO DAILY 10/08/21 06/28/23 valacyclovir 500 mg tablet 500 mg PO DAILY 10/08/21 06/28/23 omeprazole 20 mg capsule,delayed 20 mg PO DAILY 01/30/22 06/28/23 release etonogestrel 0.12 mg-ethinyl 1 vag ring vaginal DAILY 01/05/23 06/28/23 estradiol 0.015 mg/24 hr vaginal ring methylphenidate HCl 10 mg tablet 10 mg PO DAILY 01/05/23 06/28/23 Allergies Allergy/AdvReac Type Severity Reaction Status Date / Time No Known Allergies Allergy Verified 06/02/23 14:08 Review of Systems Review of Systems: Pertinent positives per HPI. Patient denies any rash, visual changes, shortness of breath, chest pain, palpitations, nausea, vomiting, diarrhea, constipation, abdominal pain, or any urinary issues. [facility] Past Medical History Medical History Depression with anxiety Gastroesophageal reflux disease Brittaney's disease Hypothyroidism Surgical History Surgical History History of benign breast biopsy History of cholecystectomy History of colonoscopy with polypectomy History of esophagogastroduodenoscopy History of removal of ovarian cyst History of tonsillectomy Family History Family History Mother Acute myocardial infarction Asthma Cerebrovascular accident Congestive heart failure Diabetes mellitus Hypertension Thyroid disease Father Asthma Cerebrovascular accident Chronic obstructive pulmonary disease Grandparent Colon cancer Social History Social History Social History: Surrogate medical decision maker: Alicia Duval, daughter. Code status: Full code. Smoking status: Former smoker Alcohol intake: current Drinks per week: 2 Alcohol use details: Rare alcohol use. Substance use: never Substance use type: does not use Lack of Transportation: No Lack of Food: Never True Current Housing: I Have Housing Concerned About Future Housing: No Difficulty Paying Gas/Electric Bills: No Difficulty Paying for Meds: No Currently Unemployed: No Education: Bachelor's Degree Difficulty w/ Childcare or Family Care: No Living arrangements: with family Additional living arrangements comments: Lives in [place] with family. 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 Spiritual care concerns: No Comments At the time of my signature, I reviewed and agree with the nursing past medical, surgical, social, and family history. There is no relevant family history pertinent to the patient complaint. Exam Narrative: General: Well-developed, well nourished, in no apparent distress Head: Normocephalic, atraumatic Eyes: Pupils equally round and reactive to light bilaterally, EOM intact, sclera and conjunctive clear, no discharge, lids normal Ears: TMs intact and congested, ear canals clear, no drainage, grossly hearing normal. Nose: Nares patent, clear
== END 2023-06-28 13:37 | disposition home or self-care (01) ==
PROVIDERS: Emergency Provider Nurse Practitioner Family
DX: J06.9 Acute upper respiratory infection, unspecified (principal); J02.9 Acute pharyngitis, unspecified; Z20.822 Contact with and (suspected) exposure to COVID-19; Z87.891 Personal history of nicotine dependence; K21.9 Gastro-esophageal reflux disease without esophagitis; E06.3 Autoimmune thyroiditis; E03.9 Hypothyroidism, unspecified; F41.8 Other specified anxiety disorders
CPT/HCPCS: 87081; 87426; 87651; 87804; 87880; 99213; G0463

== ENCOUNTER 2023-06-30 14:05 | Emergency (ER) | payer BC, MEDICAID, SELFPAY ==
--- NOTE | 2023-06-30 14:09 | ED.URI ---
HPI - URI/Sore Throat General Chief Complaint: Upper Respiratory Infection Stated Complaint: Sinus Time Seen by Provider: 06/30/23 14:20 Source: patient, RN notes reviewed and old records reviewed Mode of arrival: ambulatory Limitations: no limitations History of Present Illness HPI Narrative: 42-year-old presents to the [facility] with complaints of sinus pain and pressure. States she has had sinus pain since June 24, 5 days ago. Was seen on the and that she had a viral infection. Was prescribed steroids and told to use [id number]-[id number] products. Patient states that yesterday the pain and pressure became worse. Related Data Home Medications Medication Instructions Recorded Confirmed levothyroxine 125 mcg tablet 150 mcg PO DAILY 10/08/21 06/30/23 sertraline 50 mg tablet 50 mg PO DAILY 10/08/21 06/30/23 valacyclovir 500 mg tablet 500 mg PO DAILY 10/08/21 06/30/23 omeprazole 20 mg capsule,delayed 20 mg PO DAILY 01/30/22 06/30/23 release etonogestrel 0.12 mg-ethinyl 1 vag ring vaginal DAILY 01/05/23 06/30/23 estradiol 0.015 mg/24 hr vaginal ring methylphenidate HCl 10 mg tablet 10 mg PO DAILY 01/05/23 06/30/23 Allergies Allergy/AdvReac Type Severity Reaction Status Date / Time No Known Allergies Allergy Verified 06/30/23 14:07 Review of Systems Review of Systems: All systems reviewed & are unremarkable except as noted in HPI and below Constitutional: Constitutional: Reports no additional constitutional complaints Eyes: Eyes: Reports no additional eye complaints ENT: Reports as per HPI, Reports sinus pain and Reports sinus pressure Cardiovascular: Cardiovascular: Reports no additional cardiovascular complaints, Denies chest pain and Denies dyspnea Respiratory: Respiratory: Reports no additional respiratory complaints, Denies chest congestion, Denies cough and Denies dyspnea Gastrointestinal: Gastrointestinal: Reports no additional gastrointestinal complaints, Denies abdominal pain, Denies nausea and Denies vomiting Musculoskeletal: Musculoskeletal: Reports no additional musculoskeletal complaints Integumentary/Breasts: Skin/Breast: Reports system reviewed and no additional complaints, except as docu Neurologic: Reports system reviewed and no additional complaints, except as documented Psychiatric: Psychiatric: Reports no additional psychiatric complaints Allergic/Immunologic: Allergic/Immunologic: Reports no additional allergic/immunologic complaints PMFSH Past Medical History Medical History Depression with anxiety Gastroesophageal reflux disease Brittaney's disease Hypothyroidism Surgical History Surgical History History of benign breast biopsy History of cholecystectomy History of colonoscopy with polypectomy History of esophagogastroduodenoscopy History of removal of ovarian cyst History of tonsillectomy Family History Family History Mother Acute myocardial infarction Asthma Cerebrovascular accident Congestive heart failure Diabetes mellitus Hypertension Thyroid disease Father Asthma Cerebrovascular accident Chronic obstructive pulmonary disease Grandparent Colon cancer Social History Social History Social History: Surrogate medical decision maker: Alicia Duval, daughter. Code status: Full code. Smoking status: Former smoker Alcohol intake: current Drinks per week: 2 Alcohol use details: Rare alcohol use. Substance use: never Substance use type: does not use Lack of Transportation: No Lack of Food: Never True Current Housing: I Have Housing Concerned About Future Housing: No Difficulty Paying Gas/Electric Bills: No Difficulty Paying for Meds: No Currently Unemployed: No Education: Bachelor's Degree Diffic
[2023-06-30 14:12] VITALS: BP 117/82; PULSE 82; RESP 18; TEMP 36.5; O2SAT 100
== END 2023-06-30 14:36 | disposition home or self-care (01) ==
PROVIDERS: Emergency Provider Nurse Practitioner
DX: J06.9 Acute upper respiratory infection, unspecified (principal); Z87.891 Personal history of nicotine dependence; K21.9 Gastro-esophageal reflux disease without esophagitis; E06.3 Autoimmune thyroiditis; E03.9 Hypothyroidism, unspecified; F41.8 Other specified anxiety disorders
CPT/HCPCS: 99213; G0463

== ENCOUNTER 2023-07-04 12:40 | Emergency (ER) | payer BC, MEDICAID, SELFPAY ==
--- NOTE | ~2023-07-04 | XR_ITS ---
EXAMINATION: XR chest 2V DATE: 07/04/2023 13:14 INDICATION: Shortness of breath. TECHNIQUE: Frontal and lateral views of the chest were obtained. COMPARISON: Chest 2 views 08/15/2022 FINDINGS: There is no pneumonia, pleural effusion, or pneumothorax. The heart size is normal. IMPRESSION: 1. No acute cardiopulmonary disease. Reviewed, dictated and finalized at location A.
[2023-07-04 12:47] VITALS: BP 127/85; PULSE 69; RESP 17; TEMP 36.6; O2SAT 98
--- NOTE | 2023-07-04 12:53 | ECG_ITS ---
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 Measurements Intervals [place] Rate: 67 P: 13 LA: 125 QRS: 48 QRSD: 77 T: 15 QT: 391 QTc: 415 Interpretive Statements SINUS RHYTHM RSR' IN V1 OR V2, PROBABLY NORMAL VARIANT BASELINE ARTIFACT- I, II, III, AVR, AVL, AVF BORDERLINE ECG No previous ECG available for comparison Electronically Signed On 07-05-2023 08:52:51 CDT by Juan Parish D.O.
[2023-07-04 12:58] VITALS: PULSE 68
[2023-07-04 12:59] VITALS: O2SAT 98
[2023-07-04 13:01] LABS: Basophils Absolute Auto 0.1 K/mm3 (0.0-0.1); Basophils Percent Auto 0.7 % (0.2-1.2); Eosinophils Absolute Auto 1.2 K/mm3 (0-0.3); Eosinophils Percent Auto 9.2 % (0-4.4); Hematocrit 39.3 % (37.0-47.0); Immature Granulocyte Absolute 0.17 K/mm3 (0.00-0.031); Immature Granulocyte Percent A 1.3 % (0-0.5); Lymphocytes Absolute Auto 4.94 K/mm3 (0.9-3.2); Mean Corpuscular HGB Conc 33.1 g/dl (32-36); Mean Corpuscular Hemoglobin 31.6 pg (26-34); Mean Corpuscular Volume 95.4 fl (80-100); Mean Platelet Volume 8.8 fl (7.4-10.4); Monocytes Absolute Auto 1.1 K/mm3 (0.1-0.6); Monocytes Percent Auto 7.9 % (2.6-8.5); Neutrophils Absolute Auto 5.9 K/mm3 (1.3-6.7); Neutrophils Percent Auto 43.9 % (45.5-73.1); Platelet Count Result 396 k/mm3 (150-375); Red Blood Count 4.12 M/mm3 (4.2-5.4); Red Cell Distribution Width 14.3 % (11.5-14.5); White Blood Count 13.4 K/mm3 (4.5-10.0)
[2023-07-04 13:15] LABS: Alanine Aminotransferase 26 U/L (6-35); Alkaline Phosphatase 69 U/L (38-126); Anion Gap 4 mmol/L (4-12); Aspartate Amino Transferase 29 U/L (14-36); Bilirubin,Total 0.4 mg/dL (0.2-1.3); Blood Urea Nitrogen 10 mg/dL (7-17); Calcium 9.2 mg/dL (8.4-10.2); Carbon Dioxide 29 mmol/L (22-30); Chloride 105 mmol/L (98-107); Estimated CRCL calculation 75 ml/min; Estimated Glomerular Filt Rate > 60; Glucose 86 mg/dL (65-110); Potassium 4.4 mmol/L (3.4-5.0); Sodium 138 mmol/L (137-145)
[2023-07-04 13:37] LABS: D Dimer 0.47 ug/mL (<0.48); Influenza A QL RT-PCR Negative (Negative); Influenza B QL RT-PCR Negative (Negative); RSV RNA, RT-PCR Negative (Negative); SARS-CoV-2 RNA PCR Negative (Negative)
--- NOTE | 2023-07-04 13:51 | ED.URI ---
HPI - URI/Sore Throat General Chief Complaint: Shortness of Breath/Dyspnea Stated Complaint: sick for two weeks Time Seen by Provider: 07/04/23 12:50 Source: patient Mode of arrival: ambulatory Limitations: no limitations History of Present Illness HPI Narrative: Patient presents to the emergency department for cold symptoms ongoing over the last 2 weeks. Reports sore throat, congestion, cough, shortness of breath. Reports chest discomfort with coughing and deep breath. Reports she had fevers initially which have now resolved. she has been seen by our urgent care twice. Initially was started on a steroid taper. Was then started on doxycycline 4 days ago. Presents today for continued symptoms. Related Data Home Medications Medication Instructions Recorded Confirmed levothyroxine 125 mcg tablet 150 mcg PO DAILY 10/08/21 06/30/23 sertraline 50 mg tablet 50 mg PO DAILY 10/08/21 06/30/23 valacyclovir 500 mg tablet 500 mg PO DAILY 10/08/21 06/30/23 omeprazole 20 mg capsule,delayed 20 mg PO DAILY 01/30/22 06/30/23 release etonogestrel 0.12 mg-ethinyl 1 vag ring vaginal DAILY 01/05/23 06/30/23 estradiol 0.015 mg/24 hr vaginal ring methylphenidate HCl 10 mg tablet 10 mg PO DAILY 01/05/23 06/30/23 Allergies Allergy/AdvReac Type Severity Reaction Status Date / Time No Known Allergies Allergy Verified 07/04/23 12:57 Review of Systems Review of Systems: CONSTITUTIONAL: Reports fever ENT: Reports congestion, sore throat CARDIOVASCULAR: Reports chest pain. Denies edema. RESPIRATORY: Reports cough and dyspnea. All systems reviewed & are unremarkable except as noted in HPI and below PMFSH Past Medical History Medical History Depression with anxiety Gastroesophageal reflux disease Brittaney's disease Hypothyroidism Surgical History Surgical History History of benign breast biopsy History of cholecystectomy History of colonoscopy with polypectomy History of esophagogastroduodenoscopy History of removal of ovarian cyst History of tonsillectomy Family History Family History Mother Acute myocardial infarction Asthma Cerebrovascular accident Congestive heart failure Diabetes mellitus Hypertension Thyroid disease Father Asthma Cerebrovascular accident Chronic obstructive pulmonary disease Grandparent Colon cancer Social History Social History Social History: Surrogate medical decision maker: Alicia Duval, daughter. Code status: Full code. Smoking status: Former smoker Alcohol intake: current Drinks per week: 2 Alcohol use details: Rare alcohol use. Substance use: never Substance use type: does not use Lack of Transportation: No Lack of Food: Never True Current Housing: I Have Housing Concerned About Future Housing: No Difficulty Paying Gas/Electric Bills: No Difficulty Paying for Meds: No Currently Unemployed: No Education: Bachelor's Degree Difficulty w/ Childcare or Family Care: No Living arrangements: with family Additional living arrangements comments: Lives in [place] with family. 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 Spiritual care concerns: No Exam Narrative: GENERAL: Well-appearing, well-nourished, and in no acute distress. HEAD: Normocephalic, atraumatic. EYES: EOMI. ENT: Nares clear, no rhinorrhea or epistaxis. Mucous membranes moist. Oropharynx without tonsillar hypertrophy exudate or other lesions. Bilateral TMs pearly sargent non-bulging NECK: Supple. No adenopathy or masses. CHEST: Clear to auscultation. No respiratory distress. No wheezes rales or rhonchi HEART: Regular rate and rhythm. No murmur heard. Normal peripheral pulses. EXTREMITIES: Normal range of motion. No edema.
[2023-07-04] MEDS: KETOROLAC 15 MG/ML VIAL (*BKC) IV PUSH (13:56)
[2023-07-04 14:25] VITALS: BP 120/81; PULSE 72; RESP 15; O2SAT 97
[2023-07-04 14:35] LABS: Troponin I < 0.012 ng/mL (0.000-0.034)
[2023-07-04 14:55] LABS: Strep Group A RT-PCR NOT DETECTED (Negative)
[2023-07-04 15:38] VITALS: BP 117/78; PULSE 68; RESP 18; O2SAT 99
== END 2023-07-04 16:10 | disposition home or self-care (01) ==
PROVIDERS: Emergency Medicine; Emergency Provider Physician Assistant
DX: J06.9 Acute upper respiratory infection, unspecified (principal); Z20.822 Contact with and (suspected) exposure to COVID-19; K21.9 Gastro-esophageal reflux disease without esophagitis; E06.3 Autoimmune thyroiditis; F41.8 Other specified anxiety disorders; Z87.891 Personal history of nicotine dependence; Z90.49 Acquired absence of other specified parts of digestive tract; Z79.899 Other long term (current) drug therapy
CPT/HCPCS: 36415; 71046; 80053; 84484; 85025; 85380; 87637; 87651; 93005; 96374; 99284; J1885

== ENCOUNTER 2023-07-24 15:40 | Outpatient (CLI) | payer BC, MEDICAID, SELFPAY ==
[2023-07-24 16:38] LABS: Basophils Absolute Auto 0.1 K/mm3 (0.0-0.1); Basophils Percent Auto 0.9 % (0.2-1.2); Eosinophils Absolute Auto 0.4 K/mm3 (0-0.3); Eosinophils Percent Auto 4.4 % (0-4.4); Hematocrit 40.5 % (37.0-47.0); Hemoglobin 13.9 g/dL (12.0-15.0); Immature Granulocyte Absolute 0.03 K/mm3 (0.00-0.031); Immature Granulocyte Percent A 0.3 % (0-0.5); Lymphocytes Absolute Auto 3.17 K/mm3 (0.9-3.2); Lymphocytes Percent Auto 31.7 % (18.3-44.2); Mean Corpuscular HGB Conc 34.3 g/dl (32-36); Mean Corpuscular Hemoglobin 32.6 pg (26-34); Mean Corpuscular Volume 95.1 fl (80-100); Mean Platelet Volume 9.3 fl (7.4-10.4); Monocytes Percent Auto 10.2 % (2.6-8.5); Neutrophils Absolute Auto 5.2 K/mm3 (1.3-6.7); Neutrophils Percent Auto 52.5 % (45.5-73.1); Platelet Count Result 356 k/mm3 (150-375); Red Blood Count 4.26 M/mm3 (4.2-5.4); Red Cell Distribution Width 14.6 % (11.5-14.5)
[2023-07-24 17:58] LABS: Alanine Aminotransferase 24 U/L (6-35); Albumin Level 3.8 g/dL (3.5-5.1); Alkaline Phosphatase 50 U/L (38-126); Anion Gap 7 mmol/L (4-12); Aspartate Amino Transferase 35 U/L (14-36); Bilirubin,Total 0.6 mg/dL (0.2-1.3); Blood Urea Nitrogen 20 mg/dL (7-17); Calcium 8.7 mg/dL (8.4-10.2); Carbon Dioxide 26 mmol/L (22-30); Chloride 106 mmol/L (98-107); Cholesterol 142 mg/dL (0-200); Estimated Glomerular Filt Rate > 60; Glucose 92 mg/dL (65-110); HDL Direct 65 mg/dL; Potassium 3.8 mmol/L (3.4-5.0); Sodium 139 mmol/L (137-145); Triglycerides 46 mg/dL (<150)
[2023-07-24 18:09] LABS: LDL Cholesterol Direct 66 mg/dL
[2023-07-26 01:29] LABS: FSH 77.5 mIU/mL; LH 51.8 mIU/mL
[2023-07-26 01:47] LABS: Progesterone <0.5 ng/mL
[2023-07-27 19:09] LABS: Estrogen 60 pg/mL
[2023-07-28 06:48] LABS: Testosterone Free 1.3 pg/mL (0.2-5.0)
== END 2023-07-24 15:41 | disposition home or self-care (01) ==
LOC: ANHLAB 15:50
DX: Z00.00 Encounter for general adult medical examination without abnormal findings (principal); D72.829 Elevated white blood cell count, unspecified; N95.1 Menopausal and female climacteric states; E03.9 Hypothyroidism, unspecified; Z13.220 Encounter for screening for lipoid disorders
CPT/HCPCS: 36415; 80053; 80061; 82626; 82672; 83001; 83002; 84144; 84402; 84443; 85025

== ENCOUNTER 2023-08-14 16:50 | Outpatient (CLI) | payer BC, MEDICAID, SELFPAY ==
--- NOTE | ~2023-08-14 | US_ITS ---
EXAMINATION: US thyroid DATE: 08/14/2023 17:58 INDICATION: Hypothyroidism. TECHNIQUE: Multiple ultrasound images of the thyroid were obtained. COMPARISON: Ultrasound 12/21/2021 FINDINGS: The right thyroid lobe measures 3.3 x 1.3 x 1.0 cm. The left thyroid lobe measures 2.8 x 1.1 x 1.0 c m. The thyroid demonstrates diffusely heterogeneous hypoechogenicity. Vascularity is increased. No d iscrete nodule. IMPRESSION: 1. Heterogeneous, hypervascular thyroid, consistent with chronic lymphocytic (Brittaney) thyroiditis. Reviewed, dictated and finalized at location E. IMPRESSION: 1. Heterogeneous, hypervascular thyroid, consistent with chronic lymphocytic (H ashimoto) thyroiditis.
== END 2023-08-14 16:51 | disposition home or self-care (01) ==
LOC: ANHIMG 16:57
DX: E03.9 Hypothyroidism, unspecified (principal)
CPT/HCPCS: 76536

== ENCOUNTER 2023-08-30 12:00 | Outpatient (CLI) | payer BC, MEDICAID, SELFPAY ==
[2023-08-30 13:32] LABS: Free T4 Free Thyroxine 1.23 ng/mL (0.78-2.19)
[2023-08-31 08:04] LABS: FSH 34.3 mIU/mL; LH 71.6 mIU/mL
== END 2023-08-30 12:01 | disposition home or self-care (01) ==
LOC: ANHLAB 12:04
DX: N91.2 Amenorrhea, unspecified (principal); E03.9 Hypothyroidism, unspecified
CPT/HCPCS: 36415; 83001; 83002; 84439; 84443

== ENCOUNTER 2023-11-29 16:10 | Outpatient (CLI) | payer BC, SELFPAY | END 2023-11-29 16:11 | disposition home or self-care (01) | DX: E03.9 Hypothyroidism, unspecified (principal) | CPT/HCPCS: 36415; 84439; 84443 ==